=== PATIENT | female | born 1940 | race Caucasian/White ===

== ENCOUNTER 2017-12-11 10:21 | Inpatient (IN) | payer MEDICARE, OTHER ==
[2017-12-11] MEDS ORDERED: methylPREDNISolone SOD SUCCI 125 MG/2 ML VIAL IV STA (10:40)
[2017-12-11] MEDS ORDERED: IPRATROPIUM 0.5 MG/2.5 ML NEBU INHALATION STA (10:40)
[2017-12-11] MEDS ORDERED: ALBUTEROL NEBULIZED 2.5 MG/3 ML INHALATION STA (10:40)
[2017-12-11] MEDS ORDERED: SODIUM CHLORIDE 0.9% 1,000 ML IV STA (10:40)
[2017-12-11] MEDS ORDERED: SODIUM CHLORIDE 0.9% 500 ML IV STA (10:40)
--- NOTE | 2017-12-11 11:05 | ED ---
General Adult HPI - General Chief complaint: Shortness of Breath Stated complaint: Cough & SOB Time Seen by Provider: 12/11/17 10:40 Source: family, RN notes reviewed, old records reviewed Mode of arrival: wheelchair Limitations: no limitations - History of Present Illness Initial comments: This is a 77-year-old female to the ER for evaluation. States she presents for evaluation regarding shortness of breath. Significant shortness of breath increasing for 2 days. Patient does have history of smoking and COPD, continues to smoke. She does have increased cough and congestion. Denies fever no travel history no chest pain no significant sick contacts. Patient had difficulty ambulating down her guzman tonight propping her to come to emergency room. Patient is significantly short of breath trying to get to elevated. - Related Data Home Medications Medication Instructions Recorded Confirmed Albuterol Inhaler [Ventolin Hfa 1 - 2 puff INHALATION RT-Q4H PRN 12/11/17 Inhaler] Albuterol Nebulized [Ventolin 2.5 mg INHALATION RT-DAILY 12/11/17 12/11/17 Nebulized] Aspirin EC [Ecotrin] 325 mg PO DAILY 12/11/17 12/11/17 Oxybutynin Chloride [Ditropan] 5 mg PO DAILY 12/11/17 12/11/17 Pravastatin Sodium [Pravachol] 40 mg PO DAILY 12/11/17 12/11/17 Allergies Allergy/AdvReac Type Severity Reaction Status Date / Time nitrofurantoin Allergy Wheezing Verified 12/11/17 11:17 [From Macrobid] Review of Systems ROS Statement: Those systems with pertinent positive or pertinent negative responses have been documented in the HPI. ROS Other: All systems not noted in ROS Statement are negative. Past Medical History Past Medical History: COPD, CVA/TIA, Memory Impairment Additional Past Medical History / Comment(s): UTIs History of Any Multi-Drug Resistant Organisms: None Reported Past Surgical History: Tonsillectomy, Tubal Ligation Additional Past Surgical History / Comment(s): carotid bilateral surgeries Past Psychological History: No Psychological Hx Reported Smoking Status: Current every day smoker Past Alcohol Use History: Occasional Past Drug Use History: None Reported General Exam Limitations: no limitations General appearance: alert, anxious, cachectic Head exam: Present: atraumatic, normocephalic, normal inspection Eye exam: Present: normal appearance, PERRL, EOMI. Absent: scleral icterus, conjunctival injection, periorbital swelling ENT exam: Present: normal exam, mucous membranes moist Neck exam: Present: normal inspection. Absent: tenderness, meningismus, lymphadenopathy Respiratory exam: Present: normal lung sounds bilaterally, respiratory distress , wheezes, decreased breath sounds, prolonged expiratory. Absent: rales, rhonchi, stridor Cardiovascular Exam: Present: normal rhythm, tachycardia, normal heart sounds. Absent: systolic murmur, diastolic murmur, rubs, gallop, clicks GI/Abdominal exam: Present: soft, normal bowel sounds. Absent: distended, tenderness, guarding, rebound, rigid Extremities exam: Present: normal inspection, full ROM, normal capillary refill. Absent: tenderness, pedal edema, joint swelling, calf tenderness Back exam: Present: normal inspection Neurological exam: Present: alert, oriented X3, CN II-XII intact Psychiatric exam: Present: normal affect, normal mood Skin exam: Present: warm, dry, intact, normal color. Absent: rash Course Vital Signs 12/11/17 12/11/17 12/11/17 10:31 11:09 11:24 Temperature 99.3 F Pulse Rate 113 H 116 H 112 H Respiratory 18 Rate Blood Pressure 145/69 O2 Sat by Pulse 94 L Oximetry 12/11/17 12/11/17 12/11/17 11:30 12:12 12:16 Temperature Pulse Rate 110 H 116 H 121 H Respiratory 22 22 Rate Blood Pressure 158/77 144/67 O2 Sat by Pulse 100 95 Oximetry - Reevaluation(s) Reevaluation #1: 12/11/17 11:05 Mild improvement after prolonged breathing treatment Reevaluation #2: 12/11/17 14:07 Patient still remaining significantly short of breath EKG Findings - EKG Comments: EKG Findings:: EKG shows sinus tachycardia rate 110, OH 142, QRS 76, QTc 476 Medical Decision Making - Medical Decision Making 77 female the ER for evaluation presented for evaluation regarding shortness of breath, COPD exacerbation will admit for continuous breathing treatments, IV steroids and IV resuscitation - Lab Data Result diagrams: 12/11/17 10:58 12/11/17 10:58 Lab Results 12/11/17 12/11/17 12/11/17 Range/Units 10:58 10:58 10:58 WBC 7.8 (3.8-10.6) k/uL RBC 4.54 (3.80-5.40) m/uL Hgb 14.5 (11.4-16.0) gm/dL Hct 44.9 (34.0-46.0) % MCV 98.9 (80.0-100.0) fL MCH 32.0 (25.0-35.0) pg MCHC 32.4 (31.0-37.0) g/dL RDW 13.2 (11.5-15.5) % Plt Count 149 L (150-450) k/uL Neutrophils % 87 % Lymphocytes % 5 % Monocytes % 5 % Eosinophils % 1 % Basophils % 0 % Neutrophils # 6.8 (1.3-7.7) k/uL Lymphocytes # 0.4 L (1.0-4.8) k/uL Monocytes # 0.4 (0-1.0) k/uL Eosinophils # 0.1 (0-0.7) k/uL Basophils # 0.0 (0-0.2) k/uL PT (9.0-12.0) sec INR (<1.2) APTT (22.0-30.0) sec Sodium 141 (137-145) mmol/L Potassium 3.8 (3.5-5.1) mmol/L Chloride 99 (98-107) mmol/L Carbon Dioxide 30 (22-30) mmol/L Anion Gap 12 mmol/L BUN 14 (7-17) mg/dL Creatinine 0.50 L (0.52-1.04) mg/dL Est GFR (CKD-EPI)AfAm >90 (>60 ml/min/1.73 sqM) Est GFR (CKD-EPI)NonAf >90 (>60 ml/min/1.73 sqM) Glucose 135 H (74-99) mg/dL Calcium 9.4 (8.4-10.2) mg/dL Magnesium 1.9 (1.6-2.3) mg/dL Total Bilirubin 1.0 (0.2-1.3) mg/dL AST 35 (14-36) U/L ALT 32 (9-52) U/L Alkaline Phosphatase 59 (38-126) U/L Total Creatine Kinase 38 (30-135) U/L CK-MB (CK-2) 1.2 (0.0-2.4) ng/mL CK-MB (CK-2) Rel Index 3.2 Troponin I <0.012 (0.000-0.034) ng/mL NT-Pro-B Natriuret Pep pg/mL Total Protein 7.1 (6.3-8.2) g/dL Albumin 4.4 (3.5-5.0) g/dL 12/11/17 12/11/17 Range/Units 10:58 10:58 WBC (3.8-10.6) k/uL RBC (3.80-5.40) m/uL Hgb (11.4-16.0) gm/dL Hct (34.0-46.0) % MCV (80.0-100.0) fL MCH (25.0-35.0) pg MCHC (31.0-37.0) g/dL RDW (11.5-15.5) % Plt Count (150-450) k/uL Neutrophils % % Lymphocytes % % Monocytes % % Eosinophils % % Basophils % % Neutrophils # (1.3-7.7) k/uL Lymphocytes # (1.0-4.8) k/uL Monocytes # (0-1.0) k/uL Eosinophils # (0-0.7) k/uL Basophils # (0-0.2) k/uL PT 10.1 (9.0-12.0) sec INR 1.0 (<1.2) APTT 24.0 (22.0-30.0) sec Sodium (137-145) mmol/L Potassium (3.5-5.1) mmol/L Chloride (98-107) mmol/L Carbon Dioxide (22-30) mmol/L Anion Gap mmol/L BUN (7-17) mg/dL Creatinine (0.52-1.04) mg/dL Est GFR (CKD-EPI)AfAm (>60 ml/min/1.73 sqM) Est GFR (CKD-EPI)NonAf (>60 ml/min/1.73 sqM) Glucose (74-99) mg/dL Calcium (8.4-10.2) mg/dL Magnesium (1.6-2.3) mg/dL Total Bilirubin (0.2-1.3) mg/dL AST (14-36) U/L ALT (9-52) U/L Alkaline Phosphatase (38-126) U/L Total Creatine Kinase (30-135) U/L CK-MB (CK-2) (0.0-2.4) ng/mL CK-MB (CK-2) Rel Index Troponin I (0.000-0.034) ng/mL NT-Pro-B Natriuret Pep 1340 pg/mL Total Protein (6.3-8.2) g/dL Albumin (3.5-5.0) g/dL - Radiology Data Radiology results: report reviewed (Chest x-rays negative for acute disease), image reviewed Disposition Clinical Impression: Acute exacerbation of chronic obstructive airways disease Disposition: ADMITTED IP TO THIS HOSP Condition: Good Referrals: Francy Berman MD [Primary Care Provider] - 1-2 days
[2017-12-11 11:16] LABS: Basophils % (A) 0 %; Eosinophils # (A) 0.1 k/uL (0-0.7); Eosinophils % (A) 1 %; HCT 44.9 % (34.0-46.0); HGB 14.5 gm/dL (11.4-16.0); Lymphocytes # (A) 0.4 k/uL (1.0-4.8); Lymphocytes % (A) 5 %; MCHC 32.4 g/dL (31.0-37.0); MCV 98.9 fL (80.0-100.0); Mean Platelet Volume 7.8; Monocytes # (A) 0.4 k/uL (0-1.0); Monocytes % (A) 5 %; Neutrophils # (A) 6.8 k/uL (1.3-7.7); Neutrophils % (A) 87 %; Platelet Count 149 k/uL (150-450); RBC 4.54 m/uL (3.80-5.40); RDW 13.2 % (11.5-15.5); WBC 7.8 k/uL (3.8-10.6)
--- NOTE | 2017-12-11 11:18 | XR ---
EXAMINATION TYPE: XR chest 1V portable DATE OF EXAM: 12/11/2017 COMPARISON: 04/07/2017 HISTORY: Cough TECHNIQUE: Single frontal view of the chest is obtained. FINDINGS: Diffuse emphysematous changes are seen with biapical pleural thickening. Irregular mass in the left lower lobe noted. Finding appears to be calcified previous CT scan. Additional smaller nodu les are calcified as well. No acute infiltrate, interstitial edema, pleural effusion or pneumothorax. Atherosclerotic change aorta and diffuse osteopenia. IMPRESSION: 1. COPD with evidence of previous granulomatous disease and stable calcified nodule left lower lobe. 2. No acute infiltrate.
[2017-12-11 11:29] LABS: ALT 32 U/L (9-52); AST 35 U/L (14-36); Albumin 4.4 g/dL (3.5-5.0); Alkaline Phosphatase 59 U/L (38-126); Anion Gap 12 mmol/L; Blood Urea Nitrogen 14 mg/dL (7-17); Calcium 9.4 mg/dL (8.4-10.2); Carbon Dioxide 30 mmol/L (22-30); Chloride 99 mmol/L (98-107); Glucose 135 mg/dL (74-99); Magnesium 1.9 mg/dL (1.6-2.3); Potassium 3.8 mmol/L (3.5-5.1); Prothrombin Time 10.1 sec (9.0-12.0); Sodium 141 mmol/L (137-145); Total Protein 7.1 g/dL (6.3-8.2)
[2017-12-11 11:47] LABS: Creatine Kinase 38 U/L (30-135)
[2017-12-11 11:59] LABS: Creatine Kinase MB 1.2 ng/mL (0.0-2.4); Troponin I <0.012 ng/mL (0.000-0.034)
[2017-12-11] MEDS: INSULIN ASPART 100 UNIT/ML 1 ML 10 ML VIAL SQ SCH ×2 (17:44→20:56)
[2017-12-11] MEDS ORDERED: IPRATROPIUM-ALBUTEROL 3 ML NEB INHALATION PRN (17:50)
[2017-12-11] MEDS ORDERED: TEMAZEPAM 15 MG CAP PO PRN (17:52)
[2017-12-11] MEDS ORDERED: HYDROcodone/APAP 5-325MG 1 EACH TAB PO PRN (17:52)
[2017-12-11] MEDS ORDERED: ALPRAZolam 0.25 MG TAB PO PRN (17:52)
[2017-12-11] MEDS: NICOTINE 14MG/24HR PATCH TRANSDERM SCH (18:30)
[2017-12-11] MEDS: methylPREDNISolone SOD SUCCI 125 MG/2 ML VIAL IV SCH ×2 (18:30→23:27)
--- NOTE | 2017-12-11 18:33 | HP ---
HISTORY AND PHYSICAL CHIEF COMPLAINT: Shortness of breath. HISTORY OF PRESENT ILLNESS: This 77-year-old woman with a past medical history of COPD, CVA, TIA, hyperlipidemia, memory impairment, being followed by Dr. Berman and Dr. Fermin in the outpatient setting was complaining increased shortness of breath for the last 2 days. The patient also had cough and sputum. Patient came to [facility] and admitted for further evaluation and treatment. Chest x-ray showed COPD with evidence of previous granulomatous disease and stable calcified nodule in the left lower lobe. Patient continues to smoke at this time. The patient also is severely emaciated with BMI of 14.7. There is no history of fever, rigors. No headache, loss of consciousness, seizures. PAST MEDICAL HISTORY: COPD, CVA, hyperlipidemia, memory impairment, smoking. MEDICATIONS PRIOR TO ADMISSION: Home medications are: 1. Pravachol 40 mg p.o. daily. 2. Ditropan 2.5 mg. 3. Ecotrin 325 mg daily. 4. Ventolin 2.5 daily. ALLERGIES: MACROBID. FAMILY HISTORY: No history of heart disease or strokes in family. SOCIAL HISTORY: History of smoking. Occasional alcohol intake. REVIEW OF SYSTEMS: ENT: No diminished hearing or vision. CARDIOVASCULAR: No angina or palpitations. RESPIRATORY: As mentioned earlier. GI: No nausea or diarrhea. : No dysuria. NERVOUS SYSTEM: No numbness or weakness. ALLERGY/IMMUNOLOGY: No asthma or hay fever. MUSCULOSKELETAL: As mentioned. HEMATOLOGY: No history of anemia. ENDOCRINE: No history of diabetes or hypothyroidism. CONSTITUTIONAL: As mentioned earlier. DERMATOLOGY: Negative. RHEUMATOLOGY: Negative. PSYCHIATRY: As mentioned earlier. PHYSICAL EXAMINATION: Alert and oriented x3. Pulse 101, blood pressure 134/60, respiration 18, temp 98.8, pulse ox 100% on 3 L. HEENT: Conjunctivae normal. Oral mucosa moist. NECK: No jugular venous distention. No carotid bruit. No lymph node enlargement. CARDIOVASCULAR: S1, S2 muffled. No S3, no S4. RESPIRATORY: Breath sounds diminished in the bases. Bilateral scattered rhonchi and coarse crackles bilaterally in the anterior and posterior aspects. Breathing efforts are markedly increased. Chest emphysematous. ABDOMEN: Soft, scaphoid, nontender. No mass palpable. LEGS: No edema, no swelling. NERVOUS SYSTEM: Higher functions as mentioned earlier. Moves all four limbs. No focal motor sensory deficits. LYMPHATICS: No lymphadenopathy in the neck, axillae, groin. SKIN: No ulcer, rash, bleeding. LABS: WBC 11.2, hemoglobin 14.4, platelets 149, creatinine 0.5, glucose 135. Influenza is negative. ASSESSMENT: 1. Chronic obstructive pulmonary disease acute exacerbation with acute purulent tracheobronchitis. 2. Previous granulomatous disease and stable calcified nodule in the left lower lobe. 3. Continued ongoing nicotine dependence. 4. History of cerebrovascular accident, transient ischemic attack. 5. Hyperlipidemia. 6. History of memory impairment. 7. Severe protein calorie malnutrition with BMI of 14.7. 8. Urinary incontinence. 9. History of anxiety. 10.Bilateral carotid endarterectomy. RECOMMENDATIONS AND DISCUSSION: This 77-year-old woman who presented with multiple complex medical issues, will monitor the patient closely. Continue the current management. Symptomatic treatment. Will optimize bronchodilators. Empiric antibiotics. IV steroids. Monitor blood sugars closely. DVT prophylaxis. Resume the home medications. Will repeat a chest x- ray. Guarded prognosis because of multiple complex medical issues. Further recommendations to follow. A copy of dictation being forwarded to Dr. Berman who is the primary physician. Will follow the patient closely with Dr. Hodge. MMODL / IJN: [id number] / JAYASHREE
[2017-12-11] MEDS ORDERED: LEVOFLOXACIN 500MG-D5W PMX 500 MG in DEXTROSE/WATER 1 100ML.BAG IVPB SCH (19:00)
[2017-12-11] MEDS: BUDESONIDE 1 MG/2 ML NEBU INHALATION SCH (19:08)
[2017-12-11] MEDS: FORMOTEROL FUMARATE 20 MCG/2 ML NEBU INHALATION SCH (19:08)
[2017-12-11] MEDS: IPRATROPIUM-ALBUTEROL 3 ML NEB INHALATION SCH ×2 (19:08→23:57)
[2017-12-11] MEDS: HEPARIN SODIUM,PORCINE 5,000 UNIT/ML 1 ML VIAL SQ SCH (20:56)
[2017-12-11 21:07] LABS: Glucose,Whole Blood 194 mg/dL (75-99)
[2017-12-12] MEDS: IPRATROPIUM-ALBUTEROL 3 ML NEB INHALATION SCH ×6 (05:11→19:58)
[2017-12-12] MEDS: methylPREDNISolone SOD SUCCI 125 MG/2 ML VIAL IV SCH ×3 (06:36→17:03)
[2017-12-12] MEDS: BUDESONIDE 1 MG/2 ML NEBU INHALATION SCH ×2 (07:34→19:31)
[2017-12-12] MEDS: FORMOTEROL FUMARATE 20 MCG/2 ML NEBU INHALATION SCH ×2 (07:34→19:31)
[2017-12-12] MEDS: INSULIN ASPART 100 UNIT/ML 1 ML 10 ML VIAL SQ SCH ×4 (07:42→21:18)
[2017-12-12] MEDS: PANTOPRAZOLE 40 MG TABLET PO SCH (07:43)
[2017-12-12] MEDS: OXYBUTYNIN CHLORIDE 5 MG TAB PO SCH (07:43)
[2017-12-12] MEDS: ASPIRIN 325 MG TAB PO SCH (07:44)
[2017-12-12] MEDS: NICOTINE 14MG/24HR PATCH TRANSDERM SCH (07:44)
[2017-12-12] MEDS: HEPARIN SODIUM,PORCINE 5,000 UNIT/ML 1 ML VIAL SQ SCH ×2 (07:44→21:18)
[2017-12-12 07:47] LABS: Glucose,Whole Blood 131 mg/dL (75-99)
[2017-12-12 09:08] VITALS: BMI 14.7
[2017-12-12 09:14] LABS: Basophils % (A) 0 %; Eosinophils % (A) 0 %; HCT 43.7 % (34.0-46.0); HGB 13.9 gm/dL (11.4-16.0); Lymphocytes # (A) 0.3 k/uL (1.0-4.8); Lymphocytes % (A) 4 %; MCH 31.7 pg (25.0-35.0); MCHC 31.8 g/dL (31.0-37.0); MCV 99.6 fL (80.0-100.0); Mean Platelet Volume 7.6; Monocytes # (A) 0.2 k/uL (0-1.0); Monocytes % (A) 3 %; Neutrophils # (A) 7.1 k/uL (1.3-7.7); Neutrophils % (A) 92 %; Platelet Count 144 k/uL (150-450); RBC 4.38 m/uL (3.80-5.40); WBC 7.7 k/uL (3.8-10.6)
[2017-12-12 09:40] LABS: Anion Gap 11 mmol/L; Blood Urea Nitrogen 17 mg/dL (7-17); Calcium 9.4 mg/dL (8.4-10.2); Carbon Dioxide 30 mmol/L (22-30); Chloride 101 mmol/L (98-107); Glucose 153 mg/dL (74-99); Sodium 142 mmol/L (137-145)
[2017-12-12] MEDS: MULTIVITAMINS, THERA 1 EACH TAB PO SCH (11:32)
--- NOTE | 2017-12-12 11:33 | P.CNPUL ---
History of Present Illness Consult date: 12/12/17 Requesting physician: Samantha Castellon Reason for consult: dyspnea Chief complaint: Shortness of breath, cough, congestion History of present illness: This is a very pleasant somewhat frail and cachectic 77-year-old female patient who follows with Dr. Berman is her primary care physician. She has a history of hyperlipidemia, CVA/TIA, esophageal stricture, chronic back pain, carotid stenosis status post bilateral carotid endarterectomy. She has a history of recurrent urinary tract infections and follows with Dr. Ford for the same. She also has a history of significant and ongoing chronic tobacco dependence. She follows with Dr. eFrmin in our office for significant chronic obstructive pulmonary disease with FEV1 value of 46% of predicted amount noted granulomatous disease. She is maintained on Spiriva, Ventolin and albuterol treatments. She was last seen in July 2017. Since that time she stated she had been doing fairly well as far as her breathing is concerned. She has been counseled on many occasions regarding complete smoking cessation. She presented here to the emergency room yesterday with a 2 day onset of increasing shortness of breath, cough and congestion. She was noted to have worsening dyspnea on minimal exertion. No fever, chills or night sweats. No nausea, vomiting or diarrhea. Chest x-ray showed evidence of COPD and previous ganglion Lantus disease with stable calcified nodule left lower lobe. There is no acute pulmonary process. No leukocytosis. Afebrile. Slightly tachycardic. She is seen today in consultation on the regular medical floor. She is awake and alert in no acute distress. She states she is breathing slightly better today as compared to yesterday but has been mainly in bed. She is dyspneic with conversation. She has a dry nonproductive cough. Maintaining O2 saturations in the 90s on 2 L/m per nasal cannula. Review of Systems Constitutional: Reports lethargy, Reports poor appetite, Reports weakness Eyes: denies blurred vision, denies decreased vision Ears: deny: decreased hearing Ears, nose, mouth and throat: Denies headache, Denies sore throat Cardiovascular: Reports decreased exercise tolerance, Reports dyspnea on exertion, Reports rapid heart beat Respiratory: Reports cough, Reports dyspnea, Reports wheezing Gastrointestinal: Reports loss of appetite Genitourinary: Denies dysuria, Denies hematuria Musculoskeletal: Reports morning stiffness Integumentary: Denies pruritus, Denies rash Neurological: Denies numbness, Denies weakness Psychiatric: Reports anxiety Endocrine: Denies fatigue, Denies weight change Hematologic/Lymphatic: Reports as per HPI Allergic/Immunologic: Reports as per HPI Past Medical History Past Medical History: COPD, CVA/TIA, Hyperlipidemia, Memory Impairment Additional Past Medical History / Comment(s): pt is rt side dominant. hx of cva 1999- has some lt arm weakness and mild memory problems.UTIs, "leaky left ventricel","past blood clot in one of her carotid arteries", jaundice 56 yers ago, urinary urgency/leakage, told she has some loss of hearing in one of her ears but not sure which one. History of Any Multi-Drug Resistant Organisms: None Reported Past Surgical History: Tonsillectomy, Tubal Ligation Additional Past Surgical History / Comment(s): zhen carotid endaerterectomies, cataract sx,lt eye x2, rt eye x1. Past Anesthesia/Blood Transfusion Reactions: Postoperative Nausea & Vomiting ( PONV) Smoking Status: Current every day smoker - Past Family History Mother Family Medical History: No Reported History Additional Family Medical History / Comment(s): " from old age at age 84" Father Family Medical History: Pneumonia Medications and Allergies Home Medications Medication Instructions Recorded Confirmed Type Albuterol Inhaler [Ventolin Hfa 1 - 2 puff INHALATION RT-Q4H PRN 12/11/17 History Inhaler] Albuterol Nebulized [Ventolin 2.5 mg INHALATION RT-DAILY 12/11/17 12/11/17 History Nebulized] Aspirin EC [Ecotrin] 325 mg PO DAILY 12/11/17 12/11/17 History Oxybutynin Chloride [Ditropan] 5 mg PO DAILY 12/11/17 12/11/17 History Pravastatin Sodium [Pravachol] 40 mg PO DAILY 12/11/17 12/11/17 History Allergies Allergy/AdvReac Type Severity Reaction Status Date / Time nitrofurantoin Allergy Wheezing Verified 12/11/17 11:17 [From Macrobid] Physical Exam Vitals: Vital Signs Temp Pulse Pulse Resp BP BP Pulse Ox 12/12/17 11:06 100 12/12/17 07:55 106 H 12/12/17 07:45 104 H 12/12/17 07:44 104 H 12/12/17 07:34 104 H 12/12/17 07:00 97.3 F L 110 H 20 108/50 97 12/12/17 05:19 108 H 12/12/17 05:11 112 H 12/12/17 00:21 112 H 12/11/17 23:57 112 H 12/11/17 23:00 97.8 F 110 H 20 120/68 98 12/11/17 19:30 112 H 12/11/17 19:19 114 H 12/11/17 19:18 112 H 12/11/17 19:08 100 12/11/17 17:07 96.4 F L 102 H 18 143/60 97 12/11/17 16:22 98.8 F 101 H 18 134/62 100 12/11/17 15:16 98 18 134/62 97 12/11/17 13:16 100 20 129/68 97 12/11/17 12:16 121 H 22 144/67 95 12/11/17 12:12 116 H 12/11/17 11:30 110 H 22 158/77 100 12/11/17 11:24 112 H Intake and Output 12/11/17 12/12/17 12/12/17 22:59 06:59 14:59 Intake Total 450 250 Balance 450 250 Intake: Oral 450 250 Other: Voiding Method Toilet # Voids 1 2 2 Weight 33.112 kg GENERAL EXAM: Frail, cachectic. Alert, oriented 3, comfortable in no apparent distress. HEAD: Normocephalic. EYES: Normal reaction of pupils, equal size. NOSE: Clear with pink turbinates. THROAT: No erythema or exudates. NECK: No masses, no JVD. CHEST: No chest wall deformity. LUNGS: Equal air entry with bilateral wheezing, few scattered rhonchi. Diminished. CVS: S1 and S2 normal with no audible murmur, regular rhythm. Tachycardic. ABDOMEN: No hepatosplenomegaly, normal bowel sounds, no guarding or rigidity. SPINE: Kyphoscoliosis SKIN: No rashes CENTRAL NERVOUS SYSTEM: No focal deficits, tone is normal in all 4 extremities. EXTREMITIES: There is no peripheral edema. No clubbing, no cyanosis. Peripheral pulses are intact. Results - Laboratory Findings CBC and BMP: 12/12/17 08:36 12/12/17 08:36 PT/INR, D-dimer PT 10.1 sec (9.0-12.0) 12/11/17 10:58 INR 1.0 (<1.2) 12/11/17 10:58 Abnormal lab findings: Abnormal Labs 12/11/17 12/11/17 12/11/17 10:58 10:58 20:43 Plt Count 149 L Lymphocytes # 0.4 L Creatinine 0.50 L Glucose 135 H POC Glucose (mg/dL) 194 H 12/12/17 12/12/17 12/12/17 07:19 08:36 08:36 Plt Count 144 L Lymphocytes # 0.3 L Creatinine 0.50 L Glucose 153 H POC Glucose (mg/dL) 131 H - Diagnostic Findings Chest x-ray: image reviewed Assessment and Plan Assessment: Impression: #1 Acute exacerbation of chronic obstructive pulmonary disease, FEV1 value of 46 % of predicted. #2 Acute hypoxic respiratory failure secondary to above. #3 Chronic and ongoing tobacco dependence. #4 Anorexia/cachexia syndrome. #5 Hyperlipidemia maintained on pravastatin. #6 History of carotid stenosis, status post bilateral carotid endarterectomy. #7 Chronic back pain. #8 History of urinary tract infections. #9 History of pulmonary granulomas. #10 History of esophageal stricture. Plan: The patient was seen and evaluated by Dr. Hodge. Her chest x-ray and labs were reviewed. We will continue her treatment for her COPD exacerbation including DuoNeb inhalations 4 times a day and when necessary, Perforomist and Pulmicort inhalations twice a day, IV Solu-Medrol. She is on empiric antibiotics in the form of Levaquin. She is again educated regarding the importance of complete smoking cessation. A NicoDerm patch is in place. Heparin for DVT prophylaxis. Protonix for GI prophylaxis. We will increase her activity as tolerated. We'll continue to follow and make further recommendations based on her clinical status. I, the cosigning physician, performed a history & physical examination of the patient. Lungs sounds have bilateral end expiratory wheeze. Diminished.. Maintaining good O2 saturations in the 90s on 2 L/m per nasal cannula. I discussed the assessment and plan of care with my nurse practitioner, Jie Green. I attest to the above note as dictated by her. Time with Patient: Greater than 30
[2017-12-12 12:31] LABS: Glucose,Whole Blood 166 mg/dL (75-99)
[2017-12-12] MEDS: AZITHROMYCIN 250 MG TAB PO SCH (13:18)
[2017-12-12 17:35] LABS: Glucose,Whole Blood 146 mg/dL (75-99)
[2017-12-12] MEDS ORDERED: IPRATROPIUM-ALBUTEROL 3 ML NEB INHALATION PRN (19:53)
[2017-12-12 20:43] LABS: Glucose,Whole Blood 160 mg/dL (75-99)
--- NOTE | 2017-12-12 21:17 | P.PN ---
Subjective Progress Note Date: 12/12/17 progress note being dictated for Dr. Castellon. Interval history: This a 77-year-old female admitted with acute COPD exacerbationimaging multiple other medical issues. maintained on nebulized bronchodilators, antibiotics, steroids with breathing improving. Nonproductive cough.tachycardic.maintaining O2 sats in the high 90s on 3 L nasal cannula. Denies chest pain, palpitations. Objective - Vital Signs Vital signs: Vital Signs Temp 98.0 F 12/12/17 15:00 Pulse 115 H 12/12/17 19:55 Resp 18 12/12/17 19:31 BP 131/69 12/12/17 15:00 Pulse Ox 91 L 12/12/17 15:00 Intake & Output 12/12/17 12/12/17 12/13/17 06:59 18:59 06:59 Intake Total 700 240 Balance 700 240 Weight 33.112 kg Intake: Oral 700 240 Other: Voiding Method Toilet # Voids 2 2 - Exam PHYSICAL EXAM: VITAL SIGNS: [as above] GENERAL: sitting up in bed, no acute distress HEENT: Conjunctivae normal. eyes normal. oral mucosa moist NECK: No JVD. No thyroid enlargement. No LNs CARDIOVASCULAR: S1, S2 muffled. No murmur, tachycardic RESPIRATION: Breath sounds diminished in the bases. bilateral scattered rhonchi , no crackles. expiratory wheezing ABDOMEN: Soft, nontender . No guarding. no masses palpable.Bowel sounds heard. LEGS: No edema. no swelling PSYCHIATRY: Alert and oriented -3, mood and affect normal. NERVOUS SYSTEM: Cranial N 2-12 grossly normal. Moves all 4 limbs. Diffuse weakness No focal deficits. Skin: no ulcer no rash Joints: No active swelling. No inflammation. Lymphatic system. No LN neck axilla or groin. - Labs CBC & Chem 7: 12/12/17 08:36 12/12/17 08:36 Labs: Abnormal Lab Results - Last 24 Hours (Table) 12/11/17 12/12/17 12/12/17 Range/Units 20:43 07:19 08:36 Plt Count 144 L (150-450) k/uL Lymphocytes # 0.3 L (1.0-4.8) k/uL Creatinine (0.52-1.04) mg/dL Glucose (74-99) mg/dL POC Glucose (mg/dL) 194 H 131 H (75-99) mg/dL 12/12/17 12/12/17 12/12/17 Range/Units 08:36 12:23 16:54 Plt Count (150-450) k/uL Lymphocytes # (1.0-4.8) k/uL Creatinine 0.50 L (0.52-1.04) mg/dL Glucose 153 H (74-99) mg/dL POC Glucose (mg/dL) 166 H 146 H (75-99) mg/dL 12/12/17 Range/Units 20:24 Plt Count (150-450) k/uL Lymphocytes # (1.0-4.8) k/uL Creatinine (0.52-1.04) mg/dL Glucose (74-99) mg/dL POC Glucose (mg/dL) 160 H (75-99) mg/dL Assessment and Plan Assessment: 1. acute hypoxic respiratory failure secondary to Acute COPD exacerbation with acute purulent tracheobronchitis 2. Previous granulomatous disease,stable calcified nodule left lower lobe 3. Ongoing nicotine dependence 4. History of CVA, TIA 5. Severe protein calorie malnutrition, BMI 14.7 Plan: Continue on current medication regime ,monitoring and symptomatic treatment. Maintain nebulized bronchodilators, steroids and empiric antibiotics.GI and DVT prophylaxis in place. smoking cessation readdressed. Follow closely with pulmonary.tachycardic, follow-up chest x-ray ordered for a.m. along with echo and EKG. Further recommendations to follow. The impression and plan of care has been dictated as directed. : I performed a history and examination of this patient, discussed the same with the dictator. I agree with the dictator's note ,documented as a scribe. Any additional findings or plans will be noted.
[2017-12-12] MEDS: PRAVASTATIN SODIUM 40 MG TAB PO SCH (21:18)
[2017-12-12] MEDS: cefTRIAXone IN SWFI 1,000 MG/10 ML SYRINGE IVP SCH (21:30)
[2017-12-13] MEDS: methylPREDNISolone SOD SUCCI 125 MG/2 ML VIAL IV SCH ×5 (00:32→23:09)
[2017-12-13] MEDS: MULTIVITAMINS, THERA 1 EACH TAB PO SCH (07:06)
[2017-12-13] MEDS: NICOTINE 14MG/24HR PATCH TRANSDERM SCH (07:06)
[2017-12-13] MEDS: HEPARIN SODIUM,PORCINE 5,000 UNIT/ML 1 ML VIAL SQ SCH ×2 (07:06→21:09)
[2017-12-13] MEDS: ASPIRIN 325 MG TAB PO SCH (07:06)
[2017-12-13] MEDS: AZITHROMYCIN 250 MG TAB PO SCH (07:06)
[2017-12-13] MEDS: OXYBUTYNIN CHLORIDE 5 MG TAB PO SCH (07:06)
[2017-12-13] MEDS: PANTOPRAZOLE 40 MG TABLET PO SCH (07:06)
[2017-12-13 07:25] LABS: Glucose,Whole Blood 134 mg/dL (75-99)
[2017-12-13] MEDS: INSULIN ASPART 100 UNIT/ML 1 ML 10 ML VIAL SQ SCH ×4 (07:29→21:09)
[2017-12-13 08:30] LABS: Basophils % (A) 0 %; Eosinophils # (A) 0.1 k/uL (0-0.7); Eosinophils % (A) 0 %; HCT 43.2 % (34.0-46.0); Lymphocytes # (A) 0.4 k/uL (1.0-4.8); Lymphocytes % (A) 3 %; MCH 32.5 pg (25.0-35.0); MCHC 32.3 g/dL (31.0-37.0); MCV 100.6 fL (80.0-100.0); Mean Platelet Volume 7.7; Monocytes # (A) 0.5 k/uL (0-1.0); Monocytes % (A) 3 %; Neutrophils # (A) 12.6 k/uL (1.3-7.7); Neutrophils % (A) 93 %; Platelet Count 184 k/uL (150-450); RDW 13.3 % (11.5-15.5); WBC 13.7 k/uL (3.8-10.6)
[2017-12-13 08:48] LABS: Anion Gap 9 mmol/L; Blood Urea Nitrogen 25 mg/dL (7-17); Calcium 9.3 mg/dL (8.4-10.2); Carbon Dioxide 32 mmol/L (22-30); Chloride 100 mmol/L (98-107); Glucose 171 mg/dL (74-99); Potassium 4.9 mmol/L (3.5-5.1); Sodium 141 mmol/L (137-145)
[2017-12-13] MEDS: FORMOTEROL FUMARATE 20 MCG/2 ML NEBU INHALATION SCH ×3 (08:54→21:01)
[2017-12-13] MEDS: BUDESONIDE 1 MG/2 ML NEBU INHALATION SCH ×3 (08:54→21:01)
[2017-12-13] MEDS: IPRATROPIUM-ALBUTEROL 3 ML NEB INHALATION SCH ×5 (08:54→21:01)
--- NOTE | 2017-12-13 09:05 | XR ---
EXAMINATION TYPE: XR chest 2V DATE OF EXAM: 12/13/2017 HISTORY: F/U, . REFERENCE: Previous study dated 12/11/2017. FINDINGS: The lungs are markedly overinflated. There is evidence of granulomatous disease in the left lung. No lobar consolidation is seen. The heart is not enlarged. Pleural spaces are clear. IMPRESSION: 1. COPD. 2. EVIDENCE OF OLD GRANULOMATOUS DISEASE.
--- NOTE | 2017-12-13 11:39 | P.PN ---
Subjective Progress Note Date: 12/13/17 Principal diagnosis: Acute exacerbation of chronic obstructive pulmonary disease. This is a very pleasant somewhat frail and cachectic 77-year-old female patient who follows with Dr. Berman is her primary care physician. She has a history of hyperlipidemia, CVA/TIA, esophageal stricture, chronic back pain, carotid stenosis status post bilateral carotid endarterectomy. She has a history of recurrent urinary tract infections and follows with Dr. Ford for the same. She also has a history of significant and ongoing chronic tobacco dependence. She follows with Dr. Fermin in our office for significant chronic obstructive pulmonary disease with FEV1 value of 46% of predicted amount noted granulomatous disease. She is maintained on Spiriva, Ventolin and albuterol treatments. She was last seen in July 2017. Since that time she stated she had been doing fairly well as far as her breathing is concerned. She has been counseled on many occasions regarding complete smoking cessation. She presented here to the emergency room yesterday with a 2 day onset of increasing shortness of breath, cough and congestion. She was noted to have worsening dyspnea on minimal exertion. No fever, chills or night sweats. No nausea, vomiting or diarrhea. Chest x-ray showed evidence of COPD and previous ganglion Lantus disease with stable calcified nodule left lower lobe. There is no acute pulmonary process. No leukocytosis. Afebrile. Slightly tachycardic. She is seen today in consultation on the regular medical floor. She is awake and alert in no acute distress. She states she is breathing slightly better today as compared to yesterday but has been mainly in bed. She is dyspneic with conversation. She has a dry nonproductive cough. Maintaining O2 saturations in the 90s on 2 L/m per nasal cannula. The patient is seen again today 12/13/2017 in follow-up on the regular medical floor. She is currently awake and alert in no acute distress. She is breathing easier today as compared to yesterday but still not quite back to her baseline. She is dyspneic on minimal exertion and conversation. She is maintaining good O2 saturations in the upper 90s on 3 L/m per nasal cannula. She's been afebrile. Slightly tachycardic. No tachypnea. White count 13.7. Hemoglobin 14.0. Bicarb 32. Creatinine 0.53. Objective - Vital Signs Vital signs: Vital Signs Temp 97.2 F L 12/13/17 06:23 Pulse 100 12/13/17 09:52 Resp 16 12/13/17 06:23 BP 116/78 12/13/17 06:23 Pulse Ox 99 12/13/17 06:23 Intake & Output 12/12/17 12/13/17 12/13/17 18:59 06:59 18:59 Intake Total 240 Balance 240 Weight 33.112 kg Intake: Oral 240 Other: Voiding Method Toilet Toilet Toilet # Voids 2 2 2 - Exam GENERAL EXAM: Frail, cachectic. Alert, oriented 3, comfortable in no apparent distress. HEAD: Normocephalic. EYES: Normal reaction of pupils, equal size. NOSE: Clear with pink turbinates. THROAT: No erythema or exudates. NECK: No masses, no JVD. CHEST: No chest wall deformity. LUNGS: Equal air entry with bilateral wheezing, few scattered rhonchi. Diminished. CVS: S1 and S2 normal with no audible murmur, regular rhythm. Tachycardic. ABDOMEN: No hepatosplenomegaly, normal bowel sounds, no guarding or rigidity. SPINE: Kyphoscoliosis SKIN: No rashes CENTRAL NERVOUS SYSTEM: No focal deficits, tone is normal in all 4 extremities. EXTREMITIES: There is no peripheral edema. No clubbing, no cyanosis. Peripheral pulses are intact. - Labs CBC & Chem 7: 12/13/17 08:04 12/13/17 08:04 Labs: Abnormal Lab Results - Last 24 Hours (Table) 12/12/17 12/12/17 12/12/17 Range/Units 12:23 16:54 20:24 WBC (3.8-10.6) k/uL MCV (80.0-100.0) fL Neutrophils # (1.3-7.7) k/uL Lymphocytes # (1.0-4.8) k/uL Carbon Dioxide (22-30) mmol/L BUN (7-17) mg/dL Glucose (74-99) mg/dL POC Glucose (mg/dL) 166 H 146 H 160 H (75-99) mg/dL 12/13/17 12/13/17 12/13/17 Range/Units 07:22 08:04 08:04 WBC 13.7 H (3.8-10.6) k/uL MCV 100.6 H (80.0-100.0) fL Neutrophils # 12.6 H (1.3-7.7) k/uL Lymphocytes # 0.4 L (1.0-4.8) k/uL Carbon Dioxide 32 H (22-30) mmol/L BUN 25 H (7-17) mg/dL Glucose 171 H (74-99) mg/dL POC Glucose (mg/dL) 134 H (75-99) mg/dL Assessment and Plan Assessment: Impression: #1 Acute exacerbation of chronic obstructive pulmonary disease, FEV1 value of 46 % of predicted. #2 Acute hypoxic respiratory failure secondary to above. #3 Chronic and ongoing tobacco dependence. #4 Anorexia/cachexia syndrome. #5 Hyperlipidemia maintained on pravastatin. #6 History of carotid stenosis, status post bilateral carotid endarterectomy. #7 Chronic back pain. #8 History of urinary tract infections. #9 History of pulmonary granulomas. #10 History of esophageal stricture. Plan: The patient was seen and evaluated by Dr. Hodge. We will continue her current medications. She is on empiric antibiotics in the form of Levaquin. She is again educated regarding the importance of complete smoking cessation. A NicoDerm patch is in place. We will increase her activity as tolerated. We'll continue to follow and make further recommendations based on her clinical status. I, the cosigning physician, performed a history & physical examination of the patient. Lungs sounds have bilateral end expiratory wheeze. Diminished.. Maintaining good O2 saturations in the 90s on 2 L/m per nasal cannula. I discussed the assessment and plan of care with my nurse practitioner, Jie Green. I attest to the above note as dictated by her.
[2017-12-13 11:51] LABS: Glucose,Whole Blood 162 mg/dL (75-99)
--- NOTE | 2017-12-13 14:10 | ECHOF ---
Referral Reason:eval. LV fx MEASUREMENTS -------- HEIGHT: 149.9 cm WEIGHT: 33.1 kg BP: 116/78 RVIDd: 2.3 cm (< 3.3) IVSd: 1.1 cm (0.6 - 1.1) LVIDd: 2.6 cm (3.9 - 5.3) LVPWd: 1.0 cm (0.6 - 1.1) IVSs: 1.3 cm LVIDs: 2.2 cm LVPWs: 1.4 cm LA Diam: 2.5 cm (2.7 - 3.8) LAESV Index (A-L): 21.58 ml/m Ao Diam: 2.4 cm (2.0 - 3.7) AV Cusp: 1.5 cm (1.5 - 2.6) MV EXCURSION: 14.794 mm (> 18.000) MV EF SLOPE: 198 mm/s (70 - 150) EPSS: 0.3 cm RAP: 5.00 mmHg RVSP: 36.16 mmHg FINDINGS -------- Resting tachycardia (HR>100bpm). This was a technically good study. The left ventricular size is normal. Left ventricular wall thickness is normal. Overall left vent ricular systolic function is mildly impaired with, an EF between 45 - 50 %. Basal inferior LV wall motion is hypokinetic. 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 Normal LA size by volume 22+/-6 ml/m2. The right atrium is normal in size. There is mild aortic valve sclerosis. The mitral valve leaflets are mildly thickened. Mild mitral annular calcification present. There is trace mitral regurgitation. Mild tricuspid regurgitation present. There is mild pulmonary hypertension. The pulmonic valve was not well visualized. The aortic root size is normal. Normal inferior vena cava with normal inspiratory collapse consistent with estimated right atrial pre ssure of 5 mmHg. The inferior vena cava is mildly dilated. There is no pericardial effusion. CONCLUSIONS -------- 1. Resting tachycardia (HR>100bpm). 2. This was a technically good study. 3. The left ventricular size is normal. 4. Left ventricular wall thickness is normal. 5. Overall left ventricular systolic function is mildly impaired with, an EF between 45 - 50 %. 6. Basal inferior LV wall motion is hypokinetic. 7. 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 The right ventricle is normal in size. 9. Normal LA size by volume 22+/-6 ml/m2. 10. The right atrium is normal in size. 11. There is mild aortic valve sclerosis. 12. The mitral valve leaflets are mildly thickened. 13. Mild mitral annular calcification present. 14. There is trace mitral regurgitation. 15. Mild tricuspid regurgitation present. 16. There is mild pulmonary hypertension. 17. The pulmonic valve was not well visualized. 18. The aortic root size is normal. 19. Normal inferior vena cava with normal inspiratory collapse consistent with estimated right atrial pressure of 5 mmHg. 20. The inferior vena cava is mildly dilated. 21. There is no pericardial effusion. HEALTH [facility]ENTER ASSISTANT: Reina Burris RDCS
--- NOTE | 2017-12-13 16:08 | PN ---
PROGRESS NOTE DATE OF SERVICE: 12/13/2017 This 77-year-old woman who was admitted with severe COPD is being closely monitored. Patient is currently emaciated. The patient also has increased shortness of breath. Patient is on IV steroids. A 2D echo with Doppler was also done, which showed ejection fraction about 45% to 50% with some hypokinesia. NT proBNP is only 1340. Chest x-ray on admission showed increased bronchovascular markings only with calcified nodule. No chest pain or palpitation. PHYSICAL EXAMINATION: On exam, alert and oriented x3. Pulse is 106, blood pressure 116/78, respirations 16, temperature 97.2, pulse ox 99% on 3 L. HEENT: Conjunctivae normal. NECK: No jugular venous distention. CARDIOVASCULAR: S1 and S2 muffled. RESPIRATORY: Breath sounds diminished at the bases. A few scattered rhonchi and crackles. Abdomen is soft, nontender. LEGS: No edema. CENTRAL NERVOUS SYSTEM: No focal deficits. LABS: Labs are WBC 13.7. Glucose 162. ASSESSMENT: 1. Chronic obstructive pulmonary disease exacerbation with acute purulent tracheobronchitis with acute hypoxic respiratory failure. 2. Congestive heart failure with chronic systolic dysfunction, ejection fraction 45% to 50%. 3. Previous granulomatous disease with stable calcified nodule in the left lower lobe. 4. Ongoing nicotine dependence. 5. History of cerebrovascular accident, transient ischemic attack. 6. Severe protein calorie malnutrition with a body mass index 14.7. RECOMMENDATIONS AND DISCUSSION: Recommend to continue current medications, continue symptomatic treatment. Continue with the bronchodilators and steroids. Continue with antibiotics. DVT prophylaxis: Closely follow with Pulmonary. Guarded prognosis. Further recommendations to follow. Will keep the patient on high dose IV steroids. MMODL / IJN: [id number] /
[2017-12-13 17:24] LABS: Glucose,Whole Blood 170 mg/dL (75-99)
[2017-12-13] MEDS ORDERED: LEVOFLOXACIN 500 MG TAB PO SCH (19:00)
[2017-12-13 20:49] LABS: Glucose,Whole Blood 137 mg/dL (75-99)
[2017-12-13] MEDS: PRAVASTATIN SODIUM 40 MG TAB PO SCH (21:09)
[2017-12-13] MEDS: cefTRIAXone IN SWFI 1,000 MG/10 ML SYRINGE IVP SCH (21:09)
[2017-12-13] MEDS ORDERED: FUROSEMIDE 10 MG/ML 4 ML VIAL IV STA (22:05)
[2017-12-14] MEDS ORDERED: RX INFO: IV CONTRAST WAS GIVEN 1 EACH MISC MISCELLANE PRN (00:21)
--- NOTE | 2017-12-14 01:28 | CT ---
EXAMINATION TYPE: CT angio chest DATE OF EXAM: 12/14/2017 1:17 AM COMPARISON: 01/18/2016 HISTORY: prev. on synapse. elevated d-dimer and SOB CT DLP: 97.70 mGycm Automated exposure control for dose reduction was used. CONTRAST: CTA scan of the thorax is performed with IV Contrast, patient injected with 60 mL of Omnipaque 350, p ulmonary embolism protocol. There are 3-D post processed images.. FINDINGS: There is diffuse pulmonary emphysema. The lungs are clear of consolidation. There is some mild reticu lar density in the periphery of the right lower lobe. There is no pleural effusion. There is a densel y calcified 2 cm granuloma in the left lower lobe. There is no pleural effusion. Thoracic aorta is atheromatous. There is no pericardial effusion. Heart size is normal. I see no filling defects in the pulmonary arteries. There is no evidence of aortic aneurysm or dissec tion. There is no mediastinal adenopathy. There are no hilar masses. The bony thorax is intact. There is no gross evidence of compression fracture. IMPRESSION: NO EVIDENCE OF PULMONARY EMBOLISM. EMPHYSEMA. HEALED GRANULOMATOUS DISEASE. THERE IS SOME PERIPHERAL RETICULAR INFILTRATE IN THE RIGHT LOWER LOBE WITH FOCAL PLEURAL THICKENING THAT APPEARS NEW COMPARED TO OLD EXAM AND COULD RELATE TO ACUTE PNEUMONIA.
[2017-12-14] MEDS: methylPREDNISolone SOD SUCCI 125 MG/2 ML VIAL IV SCH ×4 (06:16→23:17)
[2017-12-14 07:52] LABS: Glucose,Whole Blood 141 mg/dL (75-99)
[2017-12-14] MEDS: ASPIRIN 325 MG TAB PO SCH (08:04)
[2017-12-14] MEDS: OXYBUTYNIN CHLORIDE 5 MG TAB PO SCH (08:04)
[2017-12-14] MEDS: HEPARIN SODIUM,PORCINE 5,000 UNIT/ML 1 ML VIAL SQ SCH ×2 (08:04→20:19)
[2017-12-14] MEDS: MULTIVITAMINS, THERA 1 EACH TAB PO SCH (08:04)
[2017-12-14] MEDS: PANTOPRAZOLE 40 MG TABLET PO SCH (08:04)
[2017-12-14] MEDS: NICOTINE 14MG/24HR PATCH TRANSDERM SCH (08:04)
[2017-12-14] MEDS: AZITHROMYCIN 250 MG TAB PO SCH (08:04)
[2017-12-14] MEDS: INSULIN ASPART 100 UNIT/ML 1 ML 10 ML VIAL SQ SCH ×4 (08:05→21:36)
[2017-12-14] MEDS: IPRATROPIUM-ALBUTEROL 3 ML NEB INHALATION SCH ×4 (08:13→20:27)
[2017-12-14] MEDS: BUDESONIDE 1 MG/2 ML NEBU INHALATION SCH ×2 (08:13→20:26)
[2017-12-14] MEDS: FORMOTEROL FUMARATE 20 MCG/2 ML NEBU INHALATION SCH ×2 (08:13→20:26)
[2017-12-14 08:55] LABS: Basophils % (A) 0 %; Eosinophils # (A) 0.1 k/uL (0-0.7); Eosinophils % (A) 1 %; HCT 43.2 % (34.0-46.0); HGB 14.2 gm/dL (11.4-16.0); Lymphocytes # (A) 0.5 k/uL (1.0-4.8); Lymphocytes % (A) 4 %; MCH 32.4 pg (25.0-35.0); MCHC 32.8 g/dL (31.0-37.0); MCV 98.8 fL (80.0-100.0); Mean Platelet Volume 7.6; Monocytes # (A) 0.4 k/uL (0-1.0); Monocytes % (A) 4 %; Neutrophils # (A) 9.1 k/uL (1.3-7.7); Neutrophils % (A) 90 %; Platelet Count 165 k/uL (150-450); RBC 4.38 m/uL (3.80-5.40); RDW 13.3 % (11.5-15.5); WBC 10.1 k/uL (3.8-10.6)
[2017-12-14 09:04] LABS: Anion Gap 10 mmol/L; Blood Urea Nitrogen 31 mg/dL (7-17); Calcium 9.4 mg/dL (8.4-10.2); Chloride 93 mmol/L (98-107); Glucose 138 mg/dL (74-99); Potassium 4.2 mmol/L (3.5-5.1); Sodium 143 mmol/L (137-145)
[2017-12-14 09:16] LABS: Carbon Dioxide 40 mmol/L (22-30)
--- NOTE | 2017-12-14 10:19 | XR ---
EXAMINATION TYPE: XR chest 2V DATE OF EXAM: 12/14/2017 HISTORY: SOB . REFERENCE: Previous study dated 12/13/2017. FINDINGS: The lungs are markedly overinflated. There is calcified granuloma in the left lung. The [place] gs are otherwise clear. Pleural spaces are clear. The heart is not enlarged. IMPRESSION: 1. COPD. 2. EVIDENCE OF OLD GRANULOMATOUS DISEASE.
[2017-12-14 11:55] LABS: Glucose,Whole Blood 169 mg/dL (75-99)
--- NOTE | 2017-12-14 16:48 | P.PN ---
Subjective Progress Note Date: 12/14/17 Principal diagnosis: Acute exacerbation of COPD This is a very pleasant somewhat frail and cachectic 77-year-old female patient who follows with Dr. Berman is her primary care physician. She has a history of hyperlipidemia, CVA/TIA, esophageal stricture, chronic back pain, carotid stenosis status post bilateral carotid endarterectomy. She has a history of recurrent urinary tract infections and follows with Dr. Ford for the same. She also has a history of significant and ongoing chronic tobacco dependence. She follows with Dr. Fermin in our office for significant chronic obstructive pulmonary disease with FEV1 value of 46% of predicted amount noted granulomatous disease. She is maintained on Spiriva, Ventolin and albuterol treatments. She was last seen in July 2017. Since that time she stated she had been doing fairly well as far as her breathing is concerned. She has been counseled on many occasions regarding complete smoking cessation. She presented here to the emergency room yesterday with a 2 day onset of increasing shortness of breath, cough and congestion. She was noted to have worsening dyspnea on minimal exertion. No fever, chills or night sweats. No nausea, vomiting or diarrhea. Chest x-ray showed evidence of COPD and previous ganglion Lantus disease with stable calcified nodule left lower lobe. There is no acute pulmonary process. No leukocytosis. Afebrile. Slightly tachycardic. She is seen today in consultation on the regular medical floor. She is awake and alert in no acute distress. She states she is breathing slightly better today as compared to yesterday but has been mainly in bed. She is dyspneic with conversation. She has a dry nonproductive cough. Maintaining O2 saturations in the 90s on 2 L/m per nasal cannula. The patient is seen again today 12/13/2017 in follow-up on the regular medical floor. She is currently awake and alert in no acute distress. She is breathing easier today as compared to yesterday but still not quite back to her baseline. She is dyspneic on minimal exertion and conversation. She is maintaining good O2 saturations in the upper 90s on 3 L/m per nasal cannula. She's been afebrile. Slightly tachycardic. No tachypnea. White count 13.7. Hemoglobin 14.0. Bicarb 32. Creatinine 0.53. Reevaluated today on 12/14/2017, patient is feeling a bit better, less cough and less wheezing, no shortness of breath at rest, but has dyspnea on exertion. Her admitting physician ordered a CT angiogram of the chest last night because of increased shortness of breath, and of course it is negative for pulmonary embolism. Patient has enough COPD findings to explain her chronic shortness of breath. Objective - Vital Signs Vital signs: Vital Signs Temp 97.9 F 12/14/17 15:00 Pulse 106 H 12/14/17 16:44 Resp 16 12/14/17 15:00 BP 113/55 12/14/17 15:00 Pulse Ox 97 12/14/17 15:00 Intake & Output 12/13/17 12/14/17 12/14/17 18:59 06:59 18:59 Intake Total 800 Output Total 1900 Balance -1900 800 Intake: Oral 800 Output: Urine 1900 Other: Voiding Method Toilet Toilet Bedside Commode # Voids 2 2 3 - Exam GENERAL EXAM: Frail, cachectic. Alert, oriented 3, comfortable in no apparent distress. HEAD: Normocephalic. EYES: Normal reaction of pupils, equal size. NOSE: Clear with pink turbinates. THROAT: No erythema or exudates. NECK: No masses, no JVD. CHEST: No chest wall deformity. LUNGS: Equal air entry diminished breath sounds at the bases, no rhonchi and no wheezes. CVS: S1 and S2 normal with no audible murmur, regular rhythm. Tachycardic. ABDOMEN: No hepatosplenomegaly, normal bowel sounds, no guarding or rigidity. SPINE: Kyphoscoliosis SKIN: No rashes CENTRAL NERVOUS SYSTEM: No focal deficits, tone is normal in all 4 extremities. EXTREMITIES: There is no peripheral edema. No clubbing, no cyanosis. Peripheral pulses are intact. - Labs CBC & Chem 7: 12/14/17 08:14 12/14/17 08:14 Labs: Abnormal Lab Results - Last 24 Hours (Table) 12/13/17 12/13/17 12/13/17 Range/Units 17:21 20:47 22:24 Neutrophils # (1.3-7.7) k/uL Lymphocytes # (1.0-4.8) k/uL D-Dimer 8.57 H (<0.60) mg/L FEU Chloride (98-107) mmol/L Carbon Dioxide (22-30) mmol/L BUN (7-17) mg/dL Glucose (74-99) mg/dL POC Glucose (mg/dL) 170 H 137 H (75-99) mg/dL 12/14/17 12/14/17 12/14/17 Range/Units 07:44 08:14 08:14 Neutrophils # 9.1 H (1.3-7.7) k/uL Lymphocytes # 0.5 L (1.0-4.8) k/uL D-Dimer (<0.60) mg/L FEU Chloride 93 L (98-107) mmol/L Carbon Dioxide 40 H* (22-30) mmol/L BUN 31 H (7-17) mg/dL Glucose 138 H (74-99) mg/dL POC Glucose (mg/dL) 141 H (75-99) mg/dL 12/14/17 Range/Units 11:53 Neutrophils # (1.3-7.7) k/uL Lymphocytes # (1.0-4.8) k/uL D-Dimer (<0.60) mg/L FEU Chloride (98-107) mmol/L Carbon Dioxide (22-30) mmol/L BUN (7-17) mg/dL Glucose (74-99) mg/dL POC Glucose (mg/dL) 169 H (75-99) mg/dL Assessment and Plan Assessment: #1 Acute exacerbation of chronic obstructive pulmonary disease, FEV1 value of 46 % of predicted. #2 Acute hypoxic respiratory failure secondary to above. #3 Chronic and ongoing tobacco dependence. #4 Anorexia/cachexia syndrome. #5 Hyperlipidemia maintained on pravastatin. #6 History of carotid stenosis, status post bilateral carotid endarterectomy. #7 Chronic back pain. #8 History of urinary tract infections. #9 History of pulmonary granulomas. #10 History of esophageal stricture. Plan: Continue present supportive care measures, continue oxygen, bronchodilators, antibiotics empirically, consider discharge planning by tomorrow. Follow-up with Dr. Fermin as scheduled. Patient may need to be on home O2. Time with Patient: Less than 30
[2017-12-14 17:17] LABS: Glucose,Whole Blood 136 mg/dL (75-99)
[2017-12-14] MEDS: cefTRIAXone IN SWFI 1,000 MG/10 ML SYRINGE IVP SCH (20:19)
[2017-12-14] MEDS: PRAVASTATIN SODIUM 40 MG TAB PO SCH (20:19)
[2017-12-14 20:40] LABS: Glucose,Whole Blood 289 mg/dL (75-99)
--- NOTE | 2017-12-14 21:09 | PN ---
PROGRESS NOTE DATE OF SERVICE: 12/14/2017 This 77-year-old woman was admitted with COPD acute exacerbation also had a CTA done this morning. The CTA showed no evidence of pulmonary embolism. noted. No chest pain. No palpitation. The patient is still significantly short of breath , especially on ambulation. On exam, alert and oriented x3. Pulse is 110, blood pressure 113/55, respirations 16, temperature 97.9, pulse ox 97% on 3 L. HEENT: Conjunctivae normal. Oral mucosa is moist. NECK: No jugular venous distention. No carotid bruit, no lymph node enlargement CARDIOVASCULAR: S1 and S2 muffled. RESPIRATORY: Breath sounds diminished at the bases. Bilateral scattered rhonchi and crackles. Expiratory wheezing also present. Breathing efforts are markedly increased. ABDOMEN: Soft, nontender. LEGS: No edema. NERVOUS SYSTEM: No focal deficits. LABS: CBC within normal limits. CO2 is 40. ASSESSMENT: 1. Chronic obstructive pulmonary disease exacerbation with acute purulent tracheobronchitis with acute hypoxic hypercarbic respiratory failure. 2. Congestive heart failure with chronic systolic dysfunction ejection fraction 40% to 50% with no evidence of acute exacerbation. 3. Previous granulomatous disease with stable calcified nodule in the left lower lobe. 4. Ongoing nicotine dependence. 5. History of cerebrovascular accident, transient ischemic attack. 6. Severe protein calorie malnutrition with body mass index of 14.7. RECOMMENDATIONS AND DISCUSSION: Recommend to continue current medications, continue symptomatic treatment. Continue with steroids. Closely follow with Dr. Hodge. Guarded prognosis because of multiple complex medical problems. Further recommendations to follow. MMODL / IJN: [id number] / MTDD
[2017-12-15] MEDS: methylPREDNISolone SOD SUCCI 125 MG/2 ML VIAL IV SCH ×4 (05:39→23:11)
[2017-12-15] MEDS: FORMOTEROL FUMARATE 20 MCG/2 ML NEBU INHALATION SCH ×2 (06:59→19:49)
[2017-12-15] MEDS: BUDESONIDE 1 MG/2 ML NEBU INHALATION SCH ×2 (06:59→19:49)
[2017-12-15] MEDS: IPRATROPIUM-ALBUTEROL 3 ML NEB INHALATION SCH ×4 (06:59→19:49)
[2017-12-15 07:47] LABS: Glucose,Whole Blood 184 mg/dL (75-99)
[2017-12-15] MEDS: INSULIN ASPART 100 UNIT/ML 1 ML 10 ML VIAL SQ SCH ×4 (08:27→21:30)
[2017-12-15] MEDS: ASPIRIN 325 MG TAB PO SCH (08:28)
[2017-12-15] MEDS: NICOTINE 14MG/24HR PATCH TRANSDERM SCH (08:28)
[2017-12-15] MEDS: PANTOPRAZOLE 40 MG TABLET PO SCH (08:28)
[2017-12-15] MEDS: OXYBUTYNIN CHLORIDE 5 MG TAB PO SCH (08:28)
[2017-12-15] MEDS: AZITHROMYCIN 250 MG TAB PO SCH (08:29)
[2017-12-15] MEDS: HEPARIN SODIUM,PORCINE 5,000 UNIT/ML 1 ML VIAL SQ SCH ×2 (08:29→21:29)
[2017-12-15 09:17] LABS: Basophils % (A) 0 %; Eosinophils % (A) 0 %; HCT 44.4 % (34.0-46.0); HGB 13.9 gm/dL (11.4-16.0); Lymphocytes # (A) 0.4 k/uL (1.0-4.8); Lymphocytes % (A) 4 %; MCH 31.6 pg (25.0-35.0); MCHC 31.4 g/dL (31.0-37.0); MCV 100.6 fL (80.0-100.0); Monocytes # (A) 0.3 k/uL (0-1.0); Monocytes % (A) 4 %; Neutrophils # (A) 7.9 k/uL (1.3-7.7); Neutrophils % (A) 89 %; Platelet Count 171 k/uL (150-450); RBC 4.41 m/uL (3.80-5.40); WBC 8.8 k/uL (3.8-10.6)
[2017-12-15 09:34] LABS: Blood Urea Nitrogen 41 mg/dL (7-17); Chloride 92 mmol/L (98-107); Glucose 179 mg/dL (74-99); Potassium 4.4 mmol/L (3.5-5.1); Sodium 144 mmol/L (137-145)
[2017-12-15 09:35] LABS: Calcium 9.5 mg/dL (8.4-10.2)
[2017-12-15 09:43] LABS: Anion Gap 9 mmol/L
[2017-12-15 09:55] LABS: Carbon Dioxide 43 mmol/L (22-30)
[2017-12-15 11:57] LABS: Glucose,Whole Blood 98 mg/dL (75-99)
[2017-12-15] MEDS: guaiFENesin 600 MG TABLET.ER PO SCH ×3 (12:42→21:35)
[2017-12-15] MEDS: MULTIVITAMINS, THERA 1 EACH TAB PO SCH (12:42)
--- NOTE | 2017-12-15 14:58 | P.PN ---
Subjective Progress Note Date: 12/15/17 Principal diagnosis: Acute exacerbation of COPD This is a very pleasant somewhat frail and cachectic 77-year-old female patient who follows with Dr. Berman is her primary care physician. She has a history of hyperlipidemia, CVA/TIA, esophageal stricture, chronic back pain, carotid stenosis status post bilateral carotid endarterectomy. She has a history of recurrent urinary tract infections and follows with Dr. Frod for the same. She also has a history of significant and ongoing chronic tobacco dependence. She follows with Dr. Fermin in our office for significant chronic obstructive pulmonary disease with FEV1 value of 46% of predicted amount noted granulomatous disease. She is maintained on Spiriva, Ventolin and albuterol treatments. She was last seen in July 2017. Since that time she stated she had been doing fairly well as far as her breathing is concerned. She has been counseled on many occasions regarding complete smoking cessation. She presented here to the emergency room yesterday with a 2 day onset of increasing shortness of breath, cough and congestion. She was noted to have worsening dyspnea on minimal exertion. No fever, chills or night sweats. No nausea, vomiting or diarrhea. Chest x-ray showed evidence of COPD and previous ganglion Lantus disease with stable calcified nodule left lower lobe. There is no acute pulmonary process. No leukocytosis. Afebrile. Slightly tachycardic. She is seen today in consultation on the regular medical floor. She is awake and alert in no acute distress. She states she is breathing slightly better today as compared to yesterday but has been mainly in bed. She is dyspneic with conversation. She has a dry nonproductive cough. Maintaining O2 saturations in the 90s on 2 L/m per nasal cannula. The patient is seen again today 12/13/2017 in follow-up on the regular medical floor. She is currently awake and alert in no acute distress. She is breathing easier today as compared to yesterday but still not quite back to her baseline. She is dyspneic on minimal exertion and conversation. She is maintaining good O2 saturations in the upper 90s on 3 L/m per nasal cannula. She's been afebrile. Slightly tachycardic. No tachypnea. White count 13.7. Hemoglobin 14.0. Bicarb 32. Creatinine 0.53. Reevaluated today on 12/14/2017, patient is feeling a bit better, less cough and less wheezing, no shortness of breath at rest, but has dyspnea on exertion. Her admitting physician ordered a CT angiogram of the chest last night because of increased shortness of breath, and of course it is negative for pulmonary embolism. Patient has enough COPD findings to explain her chronic shortness of breath. On 12/15/2017 patient seen in follow-up. Remains dyspneic at rest, on 3 L per nasal cannula with O2 sat at 98%. Patient is afebrile, slightly tachycardic with a heart rate up to 110 BPM. Lung sounds are positive for coarse rhonchi, patient has a loose nonproductive congested cough, unable to bring up any secretions. Remains on a combination of Rocephin and Zithromax, nebulized treatments, Pulmicort, Perforomist and IV steroids. We'll add Mucinex, and a flutter valve. Increase activity as tolerated. Continue with the same plan of care, wean FiO2. Today's lab work is negative for any evidence of leukocytosis , chloride was 92, CO2 is 43, BUN was 41, creatinine is 0.52. Objective - Vital Signs Vital signs: Vital Signs Temp 97.9 F 12/15/17 07:00 Pulse 102 H 12/15/17 11:25 Resp 18 12/15/17 08:00 BP 115/63 12/15/17 07:00 Pulse Ox 95 12/15/17 12:57 Intake & Output 12/14/17 12/15/17 12/15/17 18:59 06:59 18:59 Intake Total 800 360 Balance 800 360 Intake: Oral 800 360 Other: Voiding Method Bedside Commode Bedside Commode # Voids 3 1 1 # Bowel Movements 0 - Exam GENERAL EXAM: Alert, frail 77-year-old white female comfortable in no apparent distress. HEAD: Normocephalic/atraumatic. EYES: Normal reaction of pupils, equal size. Conjunctiva pink, sclera white. NOSE: Clear with pink turbinates. THROAT: No erythema or exudates. NECK: No masses, no JVD, no thyroid enlargement, no adenopathy. CHEST: No chest wall deformity. Symmetrical expansion. LUNGS: Equal air entry with coarse rhonchi bilaterally. CVS: Regular rate and rhythm, normal S1 and S2, no gallops, no murmurs, no rubs ABDOMEN: Soft, nontender. No hepatosplenomegaly, normal bowel sounds, no guarding or rigidity. EXTREMITIES: No clubbing, no edema, no cyanosis, 2+ pulses and upper and lower extremities. MUSCULOSKELETAL: Muscle strength and tone normal. SPINE: No scoliosis or deformity SKIN: No rashes CENTRAL NERVOUS SYSTEM: Alert and oriented -3. No focal deficits, tone is normal in all 4 extremities. PSYCHIATRIC: Alert and oriented -3. Appropriate affect. Intact judgment and insight. - Labs CBC & Chem 7: 12/15/17 08:33 12/15/17 08:33 Labs: Abnormal Lab Results - Last 24 Hours (Table) 12/14/17 12/14/17 12/15/17 Range/Units 16:50 20:37 06:55 MCV (80.0-100.0) fL Neutrophils # (1.3-7.7) k/uL Lymphocytes # (1.0-4.8) k/uL Chloride (98-107) mmol/L Carbon Dioxide (22-30) mmol/L BUN (7-17) mg/dL Glucose (74-99) mg/dL POC Glucose (mg/dL) 136 H 289 H 184 H (75-99) mg/dL 12/15/17 12/15/17 Range/Units 08:33 08:33 MCV 100.6 H (80.0-100.0) fL Neutrophils # 7.9 H (1.3-7.7) k/uL Lymphocytes # 0.4 L (1.0-4.8) k/uL Chloride 92 L (98-107) mmol/L Carbon Dioxide 43 H* (22-30) mmol/L BUN 41 H (7-17) mg/dL Glucose 179 H (74-99) mg/dL POC Glucose (mg/dL) (75-99) mg/dL Assessment and Plan Plan: Assessment: #1 Acute exacerbation of chronic obstructive pulmonary disease, FEV1 value of 46 % of predicted. #2 Acute hypoxic respiratory failure secondary to above. #3 Chronic and ongoing tobacco dependence. #4 Anorexia/cachexia syndrome. #5 Hyperlipidemia maintained on pravastatin. #6 History of carotid stenosis, status post bilateral carotid endarterectomy. #7 Chronic back pain. #8 History of urinary tract infections. #9 History of pulmonary granulomas. #10 History of esophageal stricture. Plan: Continue current plan of care, continue antibiotics, Rocephin, Zithromax, IV Solu-Medrol 61 g every 6 hours, Crystalb, Pulmiclinda, Perforomist. We will add Mucinex, we will add flutter valve. Increase activity as tolerated, wean FiO2. We will continue to follow I performed a history & physical examination of the patient and discussed their management with my nurse practitioner, Yolanda Farrell. I reviewed the nurse practitioner's note and agree with the documented findings and plan of care. Lung sounds are positive for scattered rhonchi. The findings and the impression was discussed with the patient. I attest to the documentation by the nurse practitioner. Time with Patient: Less than 30
[2017-12-15 17:25] LABS: Glucose,Whole Blood 187 mg/dL (75-99)
--- NOTE | 2017-12-15 18:24 | P.PN ---
Subjective Progress Note Date: 12/15/17 progress note being dictated for Dr. Castellon. Interval history: This a 77-year-old female admitted with acute COPD exacerbationimaging multiple other medical issues. maintained on nebulized bronchodilators, antibiotics, steroids with breathing improving. Nonproductive cough.tachycardic.maintaining O2 sats in the high 90s on 3 L nasal cannula. Denies chest pain, palpitations. 12/15/2017 maintained on Rocephin and Zithromax, nebulized bronchodilators, steroids .Short of breath at rest, nonproductive loose congested cough. Maintaining O2 sats in the high 90s on 3 L nasal cannula. Mild tachycardia. Afebrile Objective - Vital Signs Vital signs: Vital Signs Temp 97.9 F 12/15/17 15:00 Pulse 108 H 12/15/17 15:16 Resp 18 12/15/17 15:27 BP 109/68 12/15/17 15:00 Pulse Ox 95 12/15/17 12:57 Intake & Output 12/14/17 12/15/17 12/15/17 18:59 06:59 18:59 Intake Total 800 360 Balance 800 360 Weight 33.112 kg Intake: Oral 800 360 Other: Voiding Method Bedside Commode Bedside Commode # Voids 3 1 1 # Bowel Movements 0 - Exam PHYSICAL EXAM: VITAL SIGNS: [as above] GENERAL: Cachectic, sitting up in bed, no acute distress HEENT: Conjunctivae normal. eyes normal. oral mucosa moist NECK: No JVD. No thyroid enlargement. No LNs CARDIOVASCULAR: S1, S2 muffled. No murmur, tachycardic RESPIRATION: Breath sounds diminished in the bases. bilateral scattered rhonchi , no crackles. No expiratory wheezing ABDOMEN: Soft, nontender . No guarding. no masses palpable.Bowel sounds heard. LEGS: No edema. no swelling PSYCHIATRY: Alert and oriented -3, mood and affect normal. NERVOUS SYSTEM: Cranial N 2-12 grossly normal. Moves all 4 limbs. Diffuse weakness No focal deficits. Skin: no ulcer no rash Joints: No active swelling. No inflammation. Lymphatic system. No LN neck axilla or groin. - Labs CBC & Chem 7: 12/15/17 08:33 12/15/17 08:33 Labs: Abnormal Lab Results - Last 24 Hours (Table) 12/14/17 12/15/17 12/15/17 Range/Units 20:37 06:55 08:33 MCV 100.6 H (80.0-100.0) fL Neutrophils # 7.9 H (1.3-7.7) k/uL Lymphocytes # 0.4 L (1.0-4.8) k/uL Chloride (98-107) mmol/L Carbon Dioxide (22-30) mmol/L BUN (7-17) mg/dL Glucose (74-99) mg/dL POC Glucose (mg/dL) 289 H 184 H (75-99) mg/dL 12/15/17 12/15/17 Range/Units 08:33 16:56 MCV (80.0-100.0) fL Neutrophils # (1.3-7.7) k/uL Lymphocytes # (1.0-4.8) k/uL Chloride 92 L (98-107) mmol/L Carbon Dioxide 43 H* (22-30) mmol/L BUN 41 H (7-17) mg/dL Glucose 179 H (74-99) mg/dL POC Glucose (mg/dL) 187 H (75-99) mg/dL Assessment and Plan Assessment: 1. acute hypoxic respiratory failure secondary to Acute COPD exacerbation with acute purulent tracheobronchitis 2. Previous granulomatous disease,stable calcified nodule left lower lobe 3. Ongoing nicotine dependence 4. History of CVA, TIA 5. Severe protein calorie malnutrition, BMI 14.7 Plan: Continue on current medication regime ,monitoring and symptomatic treatment. Flutter valve orderd. Maintain nebulized bronchodilators, steroids and empiric antibiotics.GI and DVT prophylaxis in place. smoking cessation readdressed. Follow closely with pulmonary. The impression and plan of care has been dictated as directed. : I performed a history and examination of this patient, discussed the same with the dictator. I agree with the dictator's note ,documented as a scribe. Any additional findings or plans will be noted.
[2017-12-15 21:06] LABS: Glucose,Whole Blood 235 mg/dL (75-99)
[2017-12-15] MEDS: PRAVASTATIN SODIUM 40 MG TAB PO SCH (21:29)
[2017-12-15] MEDS: cefTRIAXone IN SWFI 1,000 MG/10 ML SYRINGE IVP SCH (21:29)
[2017-12-16] MEDS: methylPREDNISolone SOD SUCCI 125 MG/2 ML VIAL IV SCH ×4 (05:41→23:10)
[2017-12-16 07:15] LABS: Glucose,Whole Blood 148 mg/dL (75-99)
[2017-12-16] MEDS: INSULIN ASPART 100 UNIT/ML 1 ML 10 ML VIAL SQ SCH ×4 (08:10→20:58)
[2017-12-16] MEDS: PANTOPRAZOLE 40 MG TABLET PO SCH (08:11)
[2017-12-16] MEDS: AZITHROMYCIN 250 MG TAB PO SCH (08:11)
[2017-12-16] MEDS: ASPIRIN 325 MG TAB PO SCH (08:11)
[2017-12-16] MEDS: guaiFENesin 600 MG TABLET.ER PO SCH ×2 (08:12→21:00)
[2017-12-16] MEDS: OXYBUTYNIN CHLORIDE 5 MG TAB PO SCH (08:13)
[2017-12-16] MEDS: HEPARIN SODIUM,PORCINE 5,000 UNIT/ML 1 ML VIAL SQ SCH ×2 (08:13→21:02)
[2017-12-16] MEDS: NICOTINE 14MG/24HR PATCH TRANSDERM SCH (08:13)
[2017-12-16 08:26] LABS: Basophils # (A) 0.1 k/uL (0-0.2); Basophils % (A) 1 %; Eosinophils % (A) 0 %; HCT 43.5 % (34.0-46.0); HGB 14.2 gm/dL (11.4-16.0); Lymphocytes # (A) 0.5 k/uL (1.0-4.8); Lymphocytes % (A) 5 %; MCH 32.2 pg (25.0-35.0); MCHC 32.6 g/dL (31.0-37.0); MCV 98.8 fL (80.0-100.0); Mean Platelet Volume 7.9; Monocytes # (A) 0.4 k/uL (0-1.0); Monocytes % (A) 4 %; Neutrophils # (A) 8.6 k/uL (1.3-7.7); Neutrophils % (A) 88 %; Platelet Count 187 k/uL (150-450); RBC 4.41 m/uL (3.80-5.40); RDW 12.9 % (11.5-15.5); WBC 9.8 k/uL (3.8-10.6)
[2017-12-16 08:56] LABS: Blood Urea Nitrogen 41 mg/dL (7-17); Calcium 9.4 mg/dL (8.4-10.2); Chloride 93 mmol/L (98-107); Glucose 148 mg/dL (74-99); Potassium 4.7 mmol/L (3.5-5.1); Sodium 142 mmol/L (137-145)
[2017-12-16 09:04] LABS: Anion Gap 7 mmol/L
[2017-12-16 09:14] LABS: Carbon Dioxide 42 mmol/L (22-30)
[2017-12-16] MEDS: IPRATROPIUM-ALBUTEROL 3 ML NEB INHALATION SCH ×4 (10:39→20:11)
[2017-12-16] MEDS: BUDESONIDE 1 MG/2 ML NEBU INHALATION SCH ×2 (10:40→20:11)
[2017-12-16] MEDS: FORMOTEROL FUMARATE 20 MCG/2 ML NEBU INHALATION SCH ×2 (10:40→20:11)
[2017-12-16 12:44] LABS: Glucose,Whole Blood 148 mg/dL (75-99)
[2017-12-16] MEDS: MULTIVITAMINS, THERA 1 EACH TAB PO SCH (13:58)
--- NOTE | 2017-12-16 14:12 | P.PN ---
Subjective Progress Note Date: 12/16/17 Principal diagnosis: Acute exacerbation of COPD This is a very pleasant somewhat frail and cachectic 77-year-old female patient who follows with Dr. Berman is her primary care physician. She has a history of hyperlipidemia, CVA/TIA, esophageal stricture, chronic back pain, carotid stenosis status post bilateral carotid endarterectomy. She has a history of recurrent urinary tract infections and follows with Dr. Ford for the same. She also has a history of significant and ongoing chronic tobacco dependence. She follows with Dr. Fermin in our office for significant chronic obstructive pulmonary disease with FEV1 value of 46% of predicted amount noted granulomatous disease. She is maintained on Spiriva, Ventolin and albuterol treatments. She was last seen in July 2017. Since that time she stated she had been doing fairly well as far as her breathing is concerned. She has been counseled on many occasions regarding complete smoking cessation. She presented here to the emergency room yesterday with a 2 day onset of increasing shortness of breath, cough and congestion. She was noted to have worsening dyspnea on minimal exertion. No fever, chills or night sweats. No nausea, vomiting or diarrhea. Chest x-ray showed evidence of COPD and previous ganglion Lantus disease with stable calcified nodule left lower lobe. There is no acute pulmonary process. No leukocytosis. Afebrile. Slightly tachycardic. She is seen today in consultation on the regular medical floor. She is awake and alert in no acute distress. She states she is breathing slightly better today as compared to yesterday but has been mainly in bed. She is dyspneic with conversation. She has a dry nonproductive cough. Maintaining O2 saturations in the 90s on 2 L/m per nasal cannula. The patient is seen again today 12/13/2017 in follow-up on the regular medical floor. She is currently awake and alert in no acute distress. She is breathing easier today as compared to yesterday but still not quite back to her baseline. She is dyspneic on minimal exertion and conversation. She is maintaining good O2 saturations in the upper 90s on 3 L/m per nasal cannula. She's been afebrile. Slightly tachycardic. No tachypnea. White count 13.7. Hemoglobin 14.0. Bicarb 32. Creatinine 0.53. Reevaluated today on 12/14/2017, patient is feeling a bit better, less cough and less wheezing, no shortness of breath at rest, but has dyspnea on exertion. Her admitting physician ordered a CT angiogram of the chest last night because of increased shortness of breath, and of course it is negative for pulmonary embolism. Patient has enough COPD findings to explain her chronic shortness of breath. On 12/15/2017 patient seen in follow-up. Remains dyspneic at rest, on 3 L per nasal cannula with O2 sat at 98%. Patient is afebrile, slightly tachycardic with a heart rate up to 110 BPM. Lung sounds are positive for coarse rhonchi, patient has a loose nonproductive congested cough, unable to bring up any secretions. Remains on a combination of Rocephin and Zithromax, nebulized treatments, Pulmicort, Perforomist and IV steroids. We'll add Mucinex, and a flutter valve. Increase activity as tolerated. Continue with the same plan of care, wean FiO2. Today's lab work is negative for any evidence of leukocytosis , chloride was 92, CO2 is 43, BUN was 41, creatinine is 0.52. On 12/16/2017 patient seen in follow-up. Reports some improvement with her dyspnea, still unable to bring up any sputum. Is able to tolerate ambulation with assistance. Currently on 2.5 L per nasal cannula, with O2 sat at 96%. She remains afebrile. Lung sounds are positive for some scattered wheezes bilaterally, no rhonchi noted. Patient continues on a combination of Zithromax , Rocephin, Pulmicort, Perforomist, Mucinex, DuoNeb. Objective - Vital Signs Vital signs: Vital Signs Temp 97.2 F L 12/16/17 06:14 Pulse 104 H 12/16/17 10:51 Resp 16 12/16/17 06:14 BP 146/82 12/16/17 06:14 Pulse Ox 96 12/16/17 06:14 Intake & Output 12/15/17 12/16/17 12/16/17 18:59 06:59 18:59 Intake Total 360 240 Balance 360 240 Weight 33.112 kg Intake: Oral 360 240 Other: Voiding Method Bedside Commode # Voids 1 1 # Bowel Movements 0 - Exam GENERAL EXAM: Alert, frail 77-year-old white female comfortable in no apparent distress. HEAD: Normocephalic/atraumatic. EYES: Normal reaction of pupils, equal size. Conjunctiva pink, sclera white. NOSE: Clear with pink turbinates. THROAT: No erythema or exudates. NECK: No masses, no JVD, no thyroid enlargement, no adenopathy. CHEST: No chest wall deformity. Symmetrical expansion. LUNGS: Equal air entry with scattered wheezes bilaterally, no rhonchi noted, patient seems to be a bit less congested CVS: Regular rate and rhythm, normal S1 and S2, no gallops, no murmurs, no rubs ABDOMEN: Soft, nontender. No hepatosplenomegaly, normal bowel sounds, no guarding or rigidity. EXTREMITIES: No clubbing, no edema, no cyanosis, 2+ pulses and upper and lower extremities. MUSCULOSKELETAL: Muscle strength and tone normal. SPINE: No scoliosis or deformity SKIN: No rashes CENTRAL NERVOUS SYSTEM: Alert and oriented -3. No focal deficits, tone is normal in all 4 extremities. PSYCHIATRIC: Alert and oriented -3. Appropriate affect. Intact judgment and insight. - Labs CBC & Chem 7: 12/16/17 07:45 12/16/17 07:45 Labs: Abnormal Lab Results - Last 24 Hours (Table) 12/15/17 12/15/17 12/16/17 Range/Units 16:56 21:01 07:05 Neutrophils # (1.3-7.7) k/uL Lymphocytes # (1.0-4.8) k/uL Chloride (98-107) mmol/L Carbon Dioxide (22-30) mmol/L BUN (7-17) mg/dL Creatinine (0.52-1.04) mg/dL Glucose (74-99) mg/dL POC Glucose (mg/dL) 187 H 235 H 148 H (75-99) mg/dL 12/16/17 12/16/17 12/16/17 Range/Units 07:45 07:45 12:30 Neutrophils # 8.6 H (1.3-7.7) k/uL Lymphocytes # 0.5 L (1.0-4.8) k/uL Chloride 93 L (98-107) mmol/L Carbon Dioxide 42 H* (22-30) mmol/L BUN 41 H (7-17) mg/dL Creatinine 0.48 L (0.52-1.04) mg/dL Glucose 148 H (74-99) mg/dL POC Glucose (mg/dL) 148 H (75-99) mg/dL Assessment and Plan Plan: Assessment: #1 Acute exacerbation of chronic obstructive pulmonary disease, FEV1 value of 46 % of predicted. #2 Acute hypoxic respiratory failure secondary to above. #3 Chronic and ongoing tobacco dependence. #4 Anorexia/cachexia syndrome. #5 Hyperlipidemia maintained on pravastatin. #6 History of carotid stenosis, status post bilateral carotid endarterectomy. #7 Chronic back pain. #8 History of urinary tract infections. #9 History of pulmonary granulomas. #10 History of esophageal stricture. Plan: Continue encouraging ambulation, continue with current antibiotic coverage, steroids, nebulized treatments, Pulmicort and Perforomist. Patient is making slow improvement, could be considered for discharge home possibly today if she remains stable. I performed a history & physical examination of the patient and discussed their management with my nurse practitioner, Yolanda Farrell. I reviewed the nurse practitioner's note and agree with the documented findings and plan of care. Lung sounds are positive for scattered wheezes . The findings and the impression was discussed with the patient. I attest to the documentation by the nurse practitioner. Time with Patient: Less than 30
[2017-12-16 17:53] LABS: Glucose,Whole Blood 134 mg/dL (75-99)
--- NOTE | 2017-12-16 20:19 | P.PN ---
Subjective Progress Note Date: 12/16/17 progress note being dictated for Dr. Castellon. Interval history: This a 77-year-old female admitted with acute COPD exacerbationimaging multiple other medical issues. maintained on nebulized bronchodilators, antibiotics, steroids with breathing improving. Nonproductive cough.tachycardic.maintaining O2 sats in the high 90s on 3 L nasal cannula. Denies chest pain, palpitations. 12/15/2017 maintained on Rocephin and Zithromax, nebulized bronchodilators, steroids .Short of breath at rest, nonproductive loose congested cough. Maintaining O2 sats in the high 90s on 3 L nasal cannula. Mild tachycardia. Afebrile 12/16/2017. Maintained on nebulized bronchodilators, Zithromax, Rocephin, Mucinex .Reports mild improvement and breathing but continues to have persistent loose congested nonproductive cough-possibly might benefit from a bronchoscopy. CTA of chest reported some peripheral reticular infiltrate in the right lower lobe with focal pleural thickening that appears new compared to prior exam, possible acute pneumonia. Wheezing persists. Complains of exertional shortness of breath. Maintaining O2 sats of mid 90s on 2 L nasal cannula. Bicarb 42. Mild tachycardia. Afebrile. Diet intake fair. Objective - Vital Signs Vital signs: Vital Signs Temp 98.6 F 12/16/17 17:06 Pulse 106 H 12/16/17 17:06 Resp 22 12/16/17 19:26 BP 138/80 12/16/17 17:06 Pulse Ox 95 12/16/17 15:00 Intake & Output 12/16/17 12/16/17 12/17/17 06:59 18:59 06:59 Intake Total 240 Balance 240 Intake: Oral 240 Other: Voiding Method Bedside Commode # Voids 1 2 1 # Bowel Movements 2 - Exam PHYSICAL EXAM: VITAL SIGNS: [as above] GENERAL: Cachectic, sitting up in bed, no acute distress HEENT: Conjunctivae normal. eyes normal. oral mucosa moist NECK: No JVD. No thyroid enlargement. No LNs CARDIOVASCULAR: S1, S2 muffled. No murmur, tachycardic RESPIRATION: Breath sounds diminished in the bases. no rhonchi, no crackles. Scattered expiratory wheezing ABDOMEN: Soft, nontender . No guarding. no masses palpable.Bowel sounds heard. LEGS: No edema. no swelling PSYCHIATRY: Alert and oriented -3, mood and affect normal. NERVOUS SYSTEM: Cranial N 2-12 grossly normal. Moves all 4 limbs. Diffuse weakness No focal deficits. Skin: no ulcer no rash Joints: No active swelling. No inflammation. Lymphatic system. No LN neck axilla or groin. - Labs CBC & Chem 7: 12/16/17 07:45 12/16/17 07:45 Labs: Abnormal Lab Results - Last 24 Hours (Table) 12/15/17 12/16/17 12/16/17 Range/Units 21:01 07:05 07:45 Neutrophils # 8.6 H (1.3-7.7) k/uL Lymphocytes # 0.5 L (1.0-4.8) k/uL Chloride (98-107) mmol/L Carbon Dioxide (22-30) mmol/L BUN (7-17) mg/dL Creatinine (0.52-1.04) mg/dL Glucose (74-99) mg/dL POC Glucose (mg/dL) 235 H 148 H (75-99) mg/dL 12/16/17 12/16/17 12/16/17 Range/Units 07:45 12:30 17:36 Neutrophils # (1.3-7.7) k/uL Lymphocytes # (1.0-4.8) k/uL Chloride 93 L (98-107) mmol/L Carbon Dioxide 42 H* (22-30) mmol/L BUN 41 H (7-17) mg/dL Creatinine 0.48 L (0.52-1.04) mg/dL Glucose 148 H (74-99) mg/dL POC Glucose (mg/dL) 148 H 134 H (75-99) mg/dL Assessment and Plan Assessment: 1. acute hypoxic respiratory failure secondary to Acute COPD exacerbation with acute purulent tracheobronchitis, possible acute pneumonia right lower lobe 2. Previous granulomatous disease,stable calcified nodule left lower lobe 3. Ongoing nicotine dependence 4. History of CVA, TIA 5. Severe protein calorie malnutrition, BMI 14.7 Plan: Continue on current medication regime ,monitoring and symptomatic treatment. Continues to have a weak, congested loose non-productive cough. Flutter valve ordered-currently not at bedside. Maintain nebulized bronchodilators, steroids and empiric antibiotics.GI and DVT prophylaxis in place. smoking cessation readdressed. Follow closely with pulmonary. Both daughter and patient updated on plan of care. The impression and plan of care has been dictated as directed. : I performed a history and examination of this patient, discussed the same with the dictator. I agree with the dictator's note ,documented as a scribe. Any additional findings or plans will be noted.
[2017-12-16 20:52] LABS: Glucose,Whole Blood 166 mg/dL (75-99)
[2017-12-16] MEDS: cefTRIAXone IN SWFI 1,000 MG/10 ML SYRINGE IVP SCH (20:57)
[2017-12-16] MEDS: PRAVASTATIN SODIUM 40 MG TAB PO SCH (21:00)
[2017-12-17] MEDS: methylPREDNISolone SOD SUCCI 125 MG/2 ML VIAL IV SCH (05:13)
[2017-12-17 07:02] LABS: Glucose,Whole Blood 151 mg/dL (75-99)
[2017-12-17] MEDS: INSULIN ASPART 100 UNIT/ML 1 ML 10 ML VIAL SQ SCH ×2 (08:13→13:01)
[2017-12-17] MEDS: AZITHROMYCIN 250 MG TAB PO SCH (08:14)
[2017-12-17] MEDS: HEPARIN SODIUM,PORCINE 5,000 UNIT/ML 1 ML VIAL SQ SCH (08:14)
[2017-12-17] MEDS: PANTOPRAZOLE 40 MG TABLET PO SCH (08:14)
[2017-12-17] MEDS: guaiFENesin 600 MG TABLET.ER PO SCH (08:14)
[2017-12-17] MEDS: ASPIRIN 325 MG TAB PO SCH (08:14)
[2017-12-17] MEDS: OXYBUTYNIN CHLORIDE 5 MG TAB PO SCH (08:15)
[2017-12-17] MEDS: NICOTINE 14MG/24HR PATCH TRANSDERM SCH (08:15)
[2017-12-17] MEDS: IPRATROPIUM-ALBUTEROL 3 ML NEB INHALATION SCH ×3 (08:35→15:44)
[2017-12-17] MEDS: BUDESONIDE 1 MG/2 ML NEBU INHALATION SCH (08:35)
[2017-12-17] MEDS: FORMOTEROL FUMARATE 20 MCG/2 ML NEBU INHALATION SCH (08:38)
[2017-12-17 11:56] LABS: Glucose,Whole Blood 181 mg/dL (75-99)
[2017-12-17] MEDS: MULTIVITAMINS, THERA 1 EACH TAB PO SCH (13:02)
--- NOTE | 2017-12-17 14:29 | P.PN ---
Subjective Progress Note Date: 12/17/17 Principal diagnosis: Acute exacerbation of COPD This is a very pleasant somewhat frail and cachectic 77-year-old female patient who follows with Dr. Berman is her primary care physician. She has a history of hyperlipidemia, CVA/TIA, esophageal stricture, chronic back pain, carotid stenosis status post bilateral carotid endarterectomy. She has a history of recurrent urinary tract infections and follows with Dr. Ford for the same. She also has a history of significant and ongoing chronic tobacco dependence. She follows with Dr. Fermin in our office for significant chronic obstructive pulmonary disease with FEV1 value of 46% of predicted amount noted granulomatous disease. She is maintained on Spiriva, Ventolin and albuterol treatments. She was last seen in July 2017. Since that time she stated she had been doing fairly well as far as her breathing is concerned. She has been counseled on many occasions regarding complete smoking cessation. She presented here to the emergency room yesterday with a 2 day onset of increasing shortness of breath, cough and congestion. She was noted to have worsening dyspnea on minimal exertion. No fever, chills or night sweats. No nausea, vomiting or diarrhea. Chest x-ray showed evidence of COPD and previous ganglion Lantus disease with stable calcified nodule left lower lobe. There is no acute pulmonary process. No leukocytosis. Afebrile. Slightly tachycardic. She is seen today in consultation on the regular medical floor. She is awake and alert in no acute distress. She states she is breathing slightly better today as compared to yesterday but has been mainly in bed. She is dyspneic with conversation. She has a dry nonproductive cough. Maintaining O2 saturations in the 90s on 2 L/m per nasal cannula. The patient is seen again today 12/13/2017 in follow-up on the regular medical floor. She is currently awake and alert in no acute distress. She is breathing easier today as compared to yesterday but still not quite back to her baseline. She is dyspneic on minimal exertion and conversation. She is maintaining good O2 saturations in the upper 90s on 3 L/m per nasal cannula. She's been afebrile. Slightly tachycardic. No tachypnea. White count 13.7. Hemoglobin 14.0. Bicarb 32. Creatinine 0.53. Reevaluated today on 12/14/2017, patient is feeling a bit better, less cough and less wheezing, no shortness of breath at rest, but has dyspnea on exertion. Her admitting physician ordered a CT angiogram of the chest last night because of increased shortness of breath, and of course it is negative for pulmonary embolism. Patient has enough COPD findings to explain her chronic shortness of breath. On 12/15/2017 patient seen in follow-up. Remains dyspneic at rest, on 3 L per nasal cannula with O2 sat at 98%. Patient is afebrile, slightly tachycardic with a heart rate up to 110 BPM. Lung sounds are positive for coarse rhonchi, patient has a loose nonproductive congested cough, unable to bring up any secretions. Remains on a combination of Rocephin and Zithromax, nebulized treatments, Pulmicort, Perforomist and IV steroids. We'll add Mucinex, and a flutter valve. Increase activity as tolerated. Continue with the same plan of care, wean FiO2. Today's lab work is negative for any evidence of leukocytosis , chloride was 92, CO2 is 43, BUN was 41, creatinine is 0.52. On 12/16/2017 patient seen in follow-up. Reports some improvement with her dyspnea, still unable to bring up any sputum. Is able to tolerate ambulation with assistance. Currently on 2.5 L per nasal cannula, with O2 sat at 96%. She remains afebrile. Lung sounds are positive for some scattered wheezes bilaterally, no rhonchi noted. Patient continues on a combination of Zithromax , Rocephin, Pulmicort, Perforomist, Mucinex, DuoNeb. On 12/17/2017 patient is seen in follow-up. No wheezing noted on her exam, her lung sounds are positive for scattered rhonchi. Ration has been up ambulating with assistance, tolerated fairly well. Vital signs are stable. She remains on 2 L per nasal cannula with O2 sat at 99%. We will obtain room air oxygen for home oxygen assessment. Patient is stable from pulmonary standpoint for discharge home or subacute rehab today. Objective - Vital Signs Vital signs: Vital Signs Temp 98.0 F 12/17/17 07:00 Pulse 111 H 12/17/17 11:55 Resp 18 12/17/17 11:55 BP 151/95 12/17/17 07:00 Pulse Ox 99 12/17/17 08:35 Intake & Output 12/16/17 12/17/17 12/17/17 18:59 06:59 18:59 Intake Total 240 300 Balance 240 300 Intake: Oral 240 300 Other: Voiding Method Bedside Commode # Voids 2 2 # Bowel Movements 2 - Exam GENERAL EXAM: Alert, frail 77-year-old white female comfortable in no apparent distress. HEAD: Normocephalic/atraumatic. EYES: Normal reaction of pupils, equal size. Conjunctiva pink, sclera white. NOSE: Clear with pink turbinates. THROAT: No erythema or exudates. NECK: No masses, no JVD, no thyroid enlargement, no adenopathy. CHEST: No chest wall deformity. Symmetrical expansion. LUNGS: Equal air entry with scattered rhonchi noted, patient seems to be a bit less congested CVS: Regular rate and rhythm, normal S1 and S2, no gallops, no murmurs, no rubs ABDOMEN: Soft, nontender. No hepatosplenomegaly, normal bowel sounds, no guarding or rigidity. EXTREMITIES: No clubbing, no edema, no cyanosis, 2+ pulses and upper and lower extremities. MUSCULOSKELETAL: Muscle strength and tone normal. SPINE: No scoliosis or deformity SKIN: No rashes CENTRAL NERVOUS SYSTEM: Alert and oriented -3. No focal deficits, tone is normal in all 4 extremities. PSYCHIATRIC: Alert and oriented -3. Appropriate affect. Intact judgment and insight. - Labs CBC & Chem 7: 12/16/17 07:45 12/16/17 07:45 Labs: Abnormal Lab Results - Last 24 Hours (Table) 12/16/17 12/16/17 12/17/17 Range/Units 17:36 20:34 06:57 POC Glucose (mg/dL) 134 H 166 H 151 H (75-99) mg/dL 12/17/17 Range/Units 11:49 POC Glucose (mg/dL) 181 H (75-99) mg/dL Assessment and Plan Plan: Assessment: #1 Acute exacerbation of chronic obstructive pulmonary disease, FEV1 value of 46 % of predicted. #2 Acute hypoxic respiratory failure secondary to above. #3 Chronic and ongoing tobacco dependence. #4 Anorexia/cachexia syndrome. #5 Hyperlipidemia maintained on pravastatin. #6 History of carotid stenosis, status post bilateral carotid endarterectomy. #7 Chronic back pain. #8 History of urinary tract infections. #9 History of pulmonary granulomas. #10 History of esophageal stricture. Plan: No acute events overnight, patient reports improvement in her dyspnea, and wheezing. Continue current medical treatment, patient is stable for discharge home or subacute rehab today from pulmonary standpoint. Follow-up with Dr. Fermin in the office I performed a history & physical examination of the patient and discussed their management with my nurse practitioner, Yolanda Farrell. I reviewed the nurse practitioner's note and agree with the documented findings and plan of care. Lung sounds are positive for scattered rhonchi . The findings and the impression was discussed with the patient. I attest to the documentation by the nurse practitioner. Time with Patient: Less than 30
[2017-12-17] MEDS ORDERED: methylPREDNISolone SOD SUCCI 40 MG/ML 1 ML VIAL IV SCH (16:00)
--- NOTE | 2017-12-17 16:08 | P.DS ---
Providers Date of admission: 12/11/17 13:00 Expected date of discharge: 12/17/17 Attending physician: Samantha Castellon Consults: 12/11/17 16:41 Consult Physician Routine Consulting Provider: Uzma Fermin Consult Reason/Comments: copd Do you want consulting provider notified?: Yes Primary care physician: Francy Berman Hospital Course: Final Diagnoses: 1. acute hypoxic respiratory failure secondary to Acute COPD exacerbation with acute purulent tracheobronchitis, possible acute pneumonia right lower lobe 2. Previous granulomatous disease,stable calcified nodule left lower lobe 3. Ongoing nicotine dependence 4. History of CVA, TIA 5. Severe protein calorie malnutrition, BMI 14.7 Hospital course:This is a 77-year-old female admitted with acute COPD exacerbation, multiple other medical issues. Evaluated by pulmonary. Maintained on nebulized bronchodilators, antibiotics, steroids. Significant clinical improvement. Cleared by pulmonary for discharge. Patient is being discharged to [facility] subacute rehab in a stable condition with guarded prognosis. Physical Exam:VSS, alert and oriented 3 no acute distress. CV: Regular S1 and S2.LUNGS: Scattered rhonchi, less congestion. ABD: Soft, nontender positive bowel sounds. Neuro: No focal deficits. The impression and plan of care has been dictated as directed. : I performed a history and examination of this patient, discussed the same with the dictator. I agree with the dictator's note ,documented as a scribe. Any additional findings or plans will be noted. Time taken: 35 minutes Patient Condition at Discharge: Stable Plan - Discharge Summary Discharge Rx Participant: Yes New Discharge Prescriptions: New Azithromycin [Zithromax] 250 mg PO DAILY #5 tab Cefuroxime Axetil [Ceftin] 500 mg PO BID #10 tab ALPRAZolam [Xanax] 0.25 mg PO TID PRN #20 tab PRN Reason: Anxiety guaiFENesin [Mucinex] 1,200 mg PO Q12HR tablet.er HYDROcodone/APAP 5-325MG [[place] 5-325] 1 each PO Q6HR PRN #15 tab PRN Reason: Pain INSULIN LISPRO (HumaLOG) [humaLOG] 0 unit SQ ACHS #1 vial Ipratropium-Albuterol Nebulize [Duoneb 0.5 mg-3 mg/3 ml Soln] 3 ml INHALATION RT-QID ampul.neb Ipratropium-Albuterol Nebulize [Duoneb 0.5 mg-3 mg/3 ml Soln] 3 ml INHALATION Q4H PRN ampul.neb PRN Reason: Shortness Of Breath Or Wheezing Multivitamins, Thera [Multivitamin (formulary)] 1 each PO DAILY@1200 tab Nicotine 14Mg/24Hr Patch [Habitrol] 1 patch TRANSDERM DAILY patch Pantoprazole [Protonix] 40 mg PO AC-BRKFST tablet. predniSONE 10 mg PO DIRECTED #30 tab Budesonide-Formot 160-4.5 Mcg [Symbicort 160-4.5 Mcg Inhaler] 2 puff INHALATION BID #1 inhaler Continue Oxybutynin Chloride [Ditropan] 5 mg PO DAILY Aspirin EC [Ecotrin] 325 mg PO DAILY Albuterol Inhaler [Ventolin Hfa Inhaler] 1 - 2 puff INHALATION RT-Q4H PRN PRN Reason: Shortness Of Breath Pravastatin Sodium [Pravachol] 40 mg PO DAILY Discontinued Albuterol Nebulized [Ventolin Nebulized] 2.5 mg INHALATION RT-DAILY Discharge Medication List Albuterol Inhaler [Ventolin Hfa Inhaler] 1 - 2 puff INHALATION RT-Q4H PRN [History] Aspirin EC [Ecotrin] 325 mg PO DAILY 12/11/17 [History] Oxybutynin Chloride [Ditropan] 5 mg PO DAILY 12/11/17 [History] Pravastatin Sodium [Pravachol] 40 mg PO DAILY 12/11/17 [History] ALPRAZolam [Xanax] 0.25 mg PO TID PRN #20 tab 12/17/17 [Rx] Azithromycin [Zithromax] 250 mg PO DAILY #5 tab 12/17/17 [Rx] Budesonide-Formot 160-4.5 Mcg [Symbicort 160-4.5 Mcg Inhaler] 2 puff INHALATION BID #1 inhaler 12/17/17 [Rx] Cefuroxime Axetil [Ceftin] 500 mg PO BID #10 tab 12/17/17 [Rx] HYDROcodone/APAP 5-325MG [[place] 5-325] 1 each PO Q6HR PRN #15 tab 12/17/17 [Rx] INSULIN LISPRO (HumaLOG) [humaLOG] 0 unit SQ ACHS #1 vial 12/17/17 [Rx] Ipratropium-Albuterol Nebulize [Duoneb 0.5 mg-3 mg/3 ml Soln] 3 ml INHALATION Q4H PRN ampul.neb 12/17/17 [Rx] Ipratropium-Albuterol Nebulize [Duoneb 0.5 mg-3 mg/3 ml Soln] 3 ml INHALATION RT -QID ampul.neb 12/17/17 [Rx] Multivitamins, Thera [Multivitamin (formulary)] 1 each PO DAILY@1200 tab [Rx] Nicotine 14Mg/24Hr Patch [Habitrol] 1 patch TRANSDERM DAILY patch 12/17/17 [Rx] Pantoprazole [Protonix] 40 mg PO AC-BRKFST tablet. 12/17/17 [Rx] guaiFENesin [Mucinex] 1,200 mg PO Q12HR tablet.er 12/17/17 [Rx] predniSONE 10 mg PO DIRECTED #30 tab 12/17/17 [Rx] Follow up Appointment(s)/Referral(s): Francy Berman MD [Primary Care Provider] - 3 Days Uzma Fermin MD [STAFF PHYSICIAN] - 10 Days Activity/Diet/Wound Care/Special Instructions: Vero JEWELLF CBC,BMP in 3 days Thigh High Teds
[2017-12-17 17:08] VITALS: BP 143/82; PULSE 100; RESP 20; TEMP 97.1
== END 2017-12-17 17:45 | DRG 190 ==
LOC: EC 10:21 → 4MS4W 13:00 → OBSVTOIN 13:00 → 4MS4W 16:14
PROVIDERS: ADMIT Hospitalist; ATTEND Hospitalist
DX: J44.1 Chronic obstructive pulmonary disease with (acute) exacerbation (principal); E43 Unspecified severe protein-calorie malnutrition; J96.01 Acute respiratory failure with hypoxia; J96.02 Acute respiratory failure with hypercapnia; I50.22 Chronic systolic (congestive) heart failure; J84.10 Pulmonary fibrosis, unspecified; J20.9 Acute bronchitis, unspecified; J44.0 Chronic obstructive pulmonary disease with (acute) lower respiratory infection; E78.5 Hyperlipidemia, unspecified; F17.200 Nicotine dependence, unspecified, uncomplicated; G89.29 Other chronic pain; H91.90 Unspecified hearing loss, unspecified ear; R32 Unspecified urinary incontinence; F41.9 Anxiety disorder, unspecified; R91.1 Solitary pulmonary nodule; M54.9 Dorsalgia, unspecified; R39.15 Urgency of urination; Z68.1 Body mass index [BMI] 19.9 or less, adult; Z87.440 Personal history of urinary (tract) infections; Z79.82 Long term (current) use of aspirin; Z79.899 Other long term (current) drug therapy; Z86.73 Personal history of transient ischemic attack (TIA), and cerebral infarction without residual deficits; Z88.1 Allergy status to other antibiotic agents
CPT/HCPCS: 36415; 71045; 71046; 71275; 80048; 80053; 82550; 82553; 83735; 83880; 84484; 85025; 85379; 85610; 85730; 87502; 93005; 93306; 94640; 94644; 94667; 94760; 96361; 96374; 99285